=== PATIENT | male | born 1935 | race African-American/Black ===

== ENCOUNTER 2019-03-10 20:19 | Inpatient (IN) | payer MEDICARE, MEDICAID ==
[2019-03-10 20:51] LABS: #Eosinphils 0.1 thou/uL (0.0-0.7); #Lymphocytes 1.2 thou/uL (1.20-3.40); #Monocytes 0.7 thou/uL (0.11-0.59); #Neutrophils 8.6 thou/uL (1.40-6.50); %Basophils 0.1 % (0.0-1.0); %Eosinophils 0.9 % (0.0-10.0); %Monocytes 6.2 % (0.0-10.0); %Neutrophils 81.8 % (42.0-75.0); Mean Corpuscular HGB CONC 32.9 g/dL (32.0-36.0); Mean Corpuscular Hemoglobin 31.2 pg (27.0-31.0); Mean Corpuscular Volume 94.9 fL (78.0-98.0); Mean Platelet Volume 5.9 fL (7.4-10.4); Platelet Count 302 thou/uL (130-400); RBC Distribution Width 12.3 % (11.5-14.5); Red Blood Cell (RBC) Count 3.85 mill/uL (4.70-6.10); White Blood Cell (WBC) Count 10.5 thou/uL (4.8-10.8)
[2019-03-10 21:14] LABS: ALT (SGPT) 11 U/L (8-55); AST (SGOT) 15 U/L (5-34); Albumin 4.1 g/dL (3.4-4.8); Alkaline Phosphatase 82 U/L (40-150); Anion Gap 12 mmol/L (10-20); BUN (Urea Nitrogen) 17 mg/dL (8.4-25.7); Bilirubin, Total 0.4 mg/dL (0.2-1.2); Calc. Creatinine Clearance 0 mL/min (70-130); Calcium 10.1 mg/dL (7.8-10.44); Carbon Dioxide 27 mmol/L (23-31); Chloride 103 mmol/L (98-107); Estimated GFR-MDRD 82; Globulin 2.9 g/dL (2.4-3.5); Glucose 116 mg/dL (83-110); Potassium 4.2 mmol/L (3.5-5.1); Sodium 138 mmol/L (136-145)
--- NOTE | 2019-03-10 21:31 | CT ---
Exam: Head CT without contrast HISTORY: Altered mental status COMPARISON: none FINDINGS: Limited evaluation due to motion No definite hemorrhage or extra-axial coma Age-appropriate atrophy. Confluent white matter hypodensities due to chronic small vessel ischemic ch idalia. Cortical montaño-white matter differentiation is preserved No hydrocephalus Remote insult with volume loss involving the left cerebellar hemisphere Intact calvarium. Adequate aeration of the sinuses and IMPRESSION: 1. Limited evaluation of motion degradation. 2. No acute intracranial process. 3. Atrophy. Chronic small vessel ischemic changes white matter are noted. 4. Remote insult in the left cerebellar hemisphere.
[2019-03-10 22:24] LABS: Bilirubin Negative (Negative); Blood, Urine Negative (Negative); Clarity CLEAR (Clear); Glucose, Urine (Dipstick) Negative (Negative); Leukocyte Negative (Negative); Nitrite Negative (Negative); Protein, Urine (Dipstick) Negative (Neg-Trace); Specific Gravity, Urine 1.018 (1.002-1.036); Urobilinogen 0.2 mg/dL (0.2-1.0); pH, Urine 5.5 (5.0-9.0)
[2019-03-10 22:25] LABS: Bacteria/HPF None Seen HPF (None Seen); Hyaline Casts/LPF 0-3 HYALINE CAST LPF (0-3 Hyaline); RBC/HPF 0-3 HPF (0-3); Squamous Epithelial 0-3 HPF (0-3); WBC/HPF 0-3 HPF (0-3)
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
[2019-03-10] MEDS ORDERED: Ondansetron PF 4 MG/2 ML Vial IVP PRN (23:33)
[2019-03-10] MEDS ORDERED: Ondansetron ODT 4 MG TAB PO PRN (23:33)
[2019-03-10] MEDS ORDERED: Acetaminophen 325 MG TAB PO PRN (23:33)
[2019-03-10] MEDS ORDERED: Acetaminophen 650 MG Suppository PR PRN (23:33)
[2019-03-10] MEDS ORDERED: levETIRAcetam In NaCl (Iso-Os) 1,500 MG in Premix Bag 1 BAG IVPB SCH (23:59)
[2019-03-11] MEDS: Sodium Chloride 0.9% 1,000 ML IV SCH ×3 (01:15→18:29)
[2019-03-11 01:29] VITALS: BMI 21.8
[2019-03-11] MEDS ORDERED: Guaifenesin DM 100-10/5 ML UDCUP PO PRN (05:00)
[2019-03-11] MEDS ORDERED: Non-Formulary Item 1 EACH (Acetaminophen [Tylenol] 650 MG) PO PRN (05:00)
[2019-03-11] MEDS ORDERED: Nitroglycerin 0.4 MG TAB (25 Tab Bottle) SL PRN (05:00)
[2019-03-11] MEDS ORDERED: diphenhydrAMINE 25 MG CAP PO PRN (05:00)
--- NOTE | 2019-03-11 06:52 | PDOC.FM ---
- Subjective Subjective: A&Ox2 today. Deneis chest pain, shortness of breath. No acute events overnight, no more seizures. - Objective Vital Signs & Weight: Vital Signs (12 hours) Temp Pulse Resp BP BP BP Pulse Ox 03/11/19 03:08 98.7 F 87 18 106/55 L 96 03/11/19 02:58 98 F 95 18 156/78 H 100 03/11/19 00:44 98 F 92 18 156/78 H 100 Weight Weight 67.132 kg I&O: 03/09/19 03/10/19 03/11/19 06:59 06:59 06:59 Intake Total 1000 Balance 1000 Result Diagrams: 03/10/19 20:44 03/10/19 20:44 Dx/Plan (1) New onset seizure Code(s): R56.9 - UNSPECIFIED CONVULSIONS Status: Acute (2) HLD (hyperlipidemia) Code(s): E78.5 - HYPERLIPIDEMIA, UNSPECIFIED Status: Acute (3) Hx of traumatic brain injury Code(s): Z87.820 - PERSONAL HISTORY OF TRAUMATIC BRAIN INJURY Status: Acute (4) COPD (chronic obstructive pulmonary disease) Status: Acute (5) BPH (benign prostatic hyperplasia) Code(s): N40.0 - BENIGN PROSTATIC HYPERPLASIA WITHOUT LOWER URINRY TRACT SYMP Status: Chronic (6) Schizophrenia Code(s): F20.9 - SCHIZOPHRENIA, UNSPECIFIED Status: Chronic Qualifiers: Schizophrenia type: unspecified Qualified Code(s): F20.9 - Schizophrenia, unspecified - Plan Plan: New onset seizure, tonic-clinic - Loaded with keppra on admission and latha lcontinue w/ 500mg q12 - Fall precautions, PT/OT - Neurology consulted, appreciate recommendations - MRI pending - added prolactin to original labs COPD -home meds and prn breathing tx BPH - home meds HLD - home meds Dysphagia - home meds GERD - home meds Schizophrenia - home meds CODE: FULL, sister used to be healthcare technician, but not MPOA: [phone] PCP: Bhavesh Dispo: aminata flores MD, PGY-2 Addendum - Attending - Attending Attestation Date/Time: 03/11/19 4943 I personally evaluated the patient and discussed the management with Dr. Thien Morton. I agree with the History, Examination, Assessment and Plan documented above with any addition or exceptions noted below. Neuro consult, Keppra, MRI. Further mgmt per their recs.
[2019-03-11] MEDS ORDERED: Prevnar 13-Val Conj/PF 0.5 ML SYRINGE IM ONE (09:00)
[2019-03-11] MEDS: Finasteride 5 MG TAB PO SCH (09:44)
[2019-03-11] MEDS: Multivit, Therapeutic 1 TAB PO SCH (09:44)
[2019-03-11] MEDS: Aspirin Chewable 81 MG TAB PO SCH (09:44)
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
[2019-03-11] MEDS: Atorvastatin Calcium 10 MG TAB PO SCH (20:28)
[2019-03-11] MEDS: Tamsulosin HCl 0.4 MG CAP PO SCH (20:28)
[2019-03-12] MEDS: Sodium Chloride 0.9% 1,000 ML IV SCH ×4 (03:05→22:06)
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
[2019-03-12] MEDS: Multivit, Therapeutic 1 TAB PO SCH (09:25)
[2019-03-12] MEDS: Finasteride 5 MG TAB PO SCH (09:25)
[2019-03-12] MEDS: Aspirin Chewable 81 MG TAB PO SCH (09:25)
[2019-03-12] MEDS: levETIRAcetam 500 MG TAB PO SCH (09:25)
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
[2019-03-12] MEDS ORDERED: Lorazepam 2 MG/ML VIAL SLOW IVP PRN (12:27)
--- NOTE | 2019-03-12 13:22 | MRI ---
MRI Brain W WO Con: 03/12/2019 12:00 AM CLINICAL HISTORY: History of possible seizures. COMPARISON: CT of the brain without contrast dated March 10, 2019 FINDINGS: 14 cc of MultiHance was utilized for the examination. Extra axial spaces: Moderately prominent for age related to diffuse atrophy. Acute infarction: None. Ventricular system: Slight ex vacuo dilatation due to diffuse atrophy. Basal cisterns: Normal. Cerebral parenchyma: There is moderate to severe chronic small vessel white matter ischemic change.. Midline shift: None. Cerebellum: There are remote lacunar infarcts involving the cerebellar hemispheres bilaterally. Brainstem: Normal. Paranasal sinuses:There is bilateral mastoid effusions. Paranasal sinuses are clear. Intraaxial Enhancement: None IMPRESSION: 1. No acute intracranial abnormality. 2. Moderate to severe chronic small vessel white matter ischemic change with remote bilateral cerebel lar hemisphere infarcts. 3. Bilateral mastoid effusions
[2019-03-12] MEDS: Atorvastatin Calcium 10 MG TAB PO SCH (20:59)
[2019-03-12] MEDS: Tamsulosin HCl 0.4 MG CAP PO SCH (20:59)
[2019-03-13 06:11] LABS: Cardiac Risk 3.6 (Less than 4.5)
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
[2019-03-13] MEDS: Sodium Chloride 0.9% 1,000 ML IV SCH ×3 (09:53→17:25)
[2019-03-13] MEDS: Aspirin Chewable 81 MG TAB PO SCH (09:54)
[2019-03-13] MEDS: levETIRAcetam 500 MG TAB PO SCH (09:54)
[2019-03-13] MEDS: Finasteride 5 MG TAB PO SCH (09:54)
[2019-03-13] MEDS: Multivit, Therapeutic 1 TAB PO SCH (09:54)
[2019-03-13] MEDS: Tamsulosin HCl 0.4 MG CAP PO SCH (21:25)
[2019-03-13] MEDS: Atorvastatin Calcium 10 MG TAB PO SCH (21:25)
[2019-03-14] MEDS: Sodium Chloride 0.9% 1,000 ML IV SCH ×2 (02:23→11:35)
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
[2019-03-14] MEDS: levETIRAcetam 500 MG TAB PO SCH (08:36)
[2019-03-14] MEDS: Multivit, Therapeutic 1 TAB PO SCH (08:36)
[2019-03-14] MEDS: Aspirin Chewable 81 MG TAB PO SCH (08:36)
[2019-03-14] MEDS: Finasteride 5 MG TAB PO SCH (08:36)
--- NOTE | 2019-03-14 15:13 | EEG ---
Referring Physician: SONIA STEEN EEG # [id number] TEST TYPE: ROUTINE PORTABLE INPATIENT REPORT: AN EEG USING THE INTERNATIONAL TEN-TWENTY SYSTEM OF ELECTRODE PLACEMENT WAS PERFORMED. The best waking background is an 8 hertz Alpha frequency. There is some diffuse slowing seen intermixed. No epileptiform features were seen. Photic stimulation was unremarkable. IMPRESSION: THIS IS AN UNREMARKABLE AWAKE EEG. Vrt Mechanic: VERO Fire Technician: EEG.AMINA MARTIN
[2019-03-14 16:10] VITALS: BP 135/77; TEMP 98.3
--- NOTE | 2019-03-15 11:50 | DIS ---
DATE OF ADMISSION: 03/12/2019 DATE OF DISCHARGE: 03/14/2019 ADMITTING ATTENDING: Lalito Harrington MD. DISCHARGING ATTENDING: Steve Hernandez MD. RESIDENT: Sina Stewart DO. CONSULTS: Dr. Marjorie Gray, neurology. PROCEDURES: 1. EEG showing unremarkable awake EEG. 2. Brain MRI showing no acute intracranial abnormalities, moderate to severe chronic small-vessel white matter ischemia change with remote bilateral cerebellar hemisphere infarcts, bilateral mastoid effusions. 3. CT scan of brain showing limited evaluation of motion degradation, no acute intracranial process, atrophy, chronic small-vessel ischemic changes, white matter noted, remote insult in the left cerebral hemisphere. PRIMARY DIAGNOSIS: Tonic-clonic seizure. SECONDARY DIAGNOSES: 1. Chronic obstructive pulmonary disease. 2. BPH. 3. Hyperlipidemia. 4. Dysphagia. 5. Gastroesophageal reflux disease. 6. Schizophrenia. DISCONTINUED MEDICATIONS: None. DISCHARGE MEDICATIONS: 1. Tylenol 650 mg p.o. q.6 hours p.r.n. 2. Aspirin 81 mg p.o. daily. 3. Atorvastatin 10 mg p.o. at bedtime. 4. Benadryl 25 mg p.o. q.6 hours p.r.n. itching. 5. Finasteride 5 mg p.o. daily. 6. mg p.o. q.4 hours p.r.n. cough. 7. Keppra 500 mg p.o. daily. 8. Multivitamin one capsule p.o. daily. 9. Nitroglycerin 0.4 mg sublingual q.5 minutes p.r.n. chest pain. 10. Pantoprazole 40 mg p.o. daily. 11. Tamsulosin 0.4 mg p.o. at bedtime. DISCONTINUED MEDICATIONS: None. BRIEF HISTORY OF PRESENT ILLNESS/HOSPITAL COURSE: This is an 83-year-old male presenting from [facility] with possible seizure. The patient was bathing and had seizure, lasts about 2 minutes. Nursing reports no bowel loss, staring at ceiling, pupils are fixed and arms twitching. The patient has no previous history of seizures. At the time of admission, neuro exam was difficult to do due to diminished strength, difficulty following commands, although sensation was intact. The patient at baseline uses a wheelchair for mobility. The patient was admitted to the hospital, underwent EEG showing no seizure activity. The patient was put on prophylactic Keppra for seizure prophylaxis going forward. The patient was seen by Neurology with plans to follow up with Neurology and PCP in the outpatient setting. During the patient's hospital stay, there were no witnessed seizures. This including the EEG and the negative brain imaging in which he had no concern for. The seizure was caused by cranial lesion or any mass effect. DISPOSITION: Stable. DISCHARGE INSTRUCTIONS: 1. Location: [facility]. 2. Diet: Heart healthy. 3. Activity: As tolerated. 4. Followup: Follow up with PCP, Dr. Ospina, and Neurology as instructed in 1 to 2 weeks. Job ID: [id number]
== END 2019-03-14 19:30 | DRG 101 ==
LOC: ERS 20:19 → 2NO 23:08 → 2SE 03-11 00:32 → OBSVTOIN 03-12 20:18 → 2SE 03-12 22:29
PROVIDERS: ADMIT Student in an Organized Health Care Education/Training Program; ATTEND Student in an Organized Health Care Education/Training Program
DX: R56.9 Unspecified convulsions (principal); J44.9 Chronic obstructive pulmonary disease, unspecified; N40.0 Benign prostatic hyperplasia without lower urinary tract symptoms; F20.9 Schizophrenia, unspecified; E78.5 Hyperlipidemia, unspecified; G31.84 Mild cognitive impairment of uncertain or unknown etiology; Z88.8 Allergy status to other drugs, medicaments and biological substances; Z87.820 Personal history of traumatic brain injury
CPT/HCPCS: 36415; 51701; 70450; 70553; 80053; 80061; 81003; 84146; 85025; 90471; 90670; 93005; 94760; 95816; 95819; 96360; 96361; C1713; G0009; J1953; J2060

== ENCOUNTER 2019-08-23 20:01 | Inpatient (IN) | payer MEDICARE, MEDICAID ==
[~2019-08-23 20:01] MED LIST: ISOVUE-370 76%-LOCM 1 ML ONE
[2019-08-23 20:48] LABS: #Eosinphils 0.1 thou/uL (0.0-0.7); #Lymphocytes 1.1 thou/uL (1.20-3.40); #Monocytes 0.6 thou/uL (0.11-0.59); #Neutrophils 7.3 thou/uL (1.40-6.50); %Basophils 0.2 % (0.0-1.0); %Eosinophils 1.3 % (0.0-10.0); %Lymphocytes 12.3 % (21.0-51.0); %Monocytes 6.1 % (0.0-10.0); %Neutrophils 80.1 % (42.0-75.0); Mean Platelet Volume 5.9 fL (7.4-10.4); Platelet Count 328 thou/uL (130-400); RBC Distribution Width 12.4 % (11.5-14.5); White Blood Cell (WBC) Count 9.2 thou/uL (4.8-10.8)
--- NOTE | 2019-08-23 21:06 | RAD ---
PORTABLE CHEST: 08/23/19 HISTORY: Shortness of breath. Question aspiration. COMPARISON: 10/23/16 exam. There is cardiomegaly. The lungs appear clear. No infiltrate identified. No evidence of aspiration pn eumonia. Vascular markings are normal. No effusion. IMPRESSION: No evidence of infiltrate. POS: AGW
[2019-08-23 21:09] LABS: ALT (SGPT) 8 U/L (8-55); AST (SGOT) 14 U/L (5-34); Albumin 4.2 g/dL (3.4-4.8); Alkaline Phosphatase 102 U/L (40-110); Anion Gap 12 mmol/L (10-20); BUN (Urea Nitrogen) 14 mg/dL (8.4-25.7); Bilirubin, Total 0.2 mg/dL (0.2-1.2); Calc. Creatinine Clearance 0 mL/min (70-130); Calcium 9.9 mg/dL (7.8-10.44); Carbon Dioxide 25 mmol/L (23-31); Chloride 106 mmol/L (98-107); Estimated GFR-MDRD 85; Globulin 3.1 g/dL (2.4-3.5); Glucose 112 mg/dL (83-110); Potassium 4.3 mmol/L (3.5-5.1); Protein, Total 7.3 g/dL (5.8-8.1); Sodium 139 mmol/L (136-145)
[2019-08-23] MEDS ORDERED: Hydrocortisone Sod Succ/PF 100 mg/2 ml Vial ONE (22:05)
--- NOTE | 2019-08-23 23:27 | CT ---
CT ANGIOGRAM THORAX WITH IV CONTRAST AND 3D RECONSTRUCTIONS: 08/23/19 HISTORY: Hypoxia. COMPARISON: 10/23/16. FINDINGS: No filling defects are seen in the pulmonary arteries to suggest a pulmonary embolus. Vascular calcifications are seen in the thoracic aorta, but the thoracic aorta is normal in caliber w ithout evidence of an aortic dissection. The heart is at the upper limits of normal in size. Vascular calcifications are seen in the coronary arteries. Again noted are small pleural based nodular densities adjacent to the minor fissure. There is a pleur al based nodular density present at the posteromedial aspect of the right lower lobe measuring approx imately 4 mm. This was not definitely seen on the prior exam but is too small to characterize. No con solidation or pleural fluid is identified. Scattered areas of scarring are present. The previously se en pericardial effusion is no longer visualized. There are several scattered hypodense lesions again seen in the liver which have not significantly ch anged compared to the prior study and statistically likely represents cysts given stability. There has been no significant interval change when compared to the prior exam. IMPRESSION: 1. No CT evidence of a pulmonary embolus. 2. CT thorax is otherwise unchanged when compared to the prior exam. 3. Gaseous distention of the stomach with associated particulate matter which may be related to recent ingestion of a meal. There is also mild gaseous distention of the limited visualized colon. POS: OFF
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
[2019-08-24] MEDS ORDERED: Acetaminophen 325 MG TAB PO PRN (03:17)
[2019-08-24] MEDS ORDERED: Azithromycin 500 MG in Sodium Chloride 0.9% 250 ML 250 ML IVPB SCH (06:00)
[2019-08-24 07:30] VITALS: BP 131/80; TEMP 98.6
[2019-08-24] MEDS ORDERED: predniSONE 20 MG TAB PO SCH (08:00)
[2019-08-24] MEDS ORDERED: Enoxaparin Sodium 40 MG/0.4 ML SYRINGE SC SCH (09:00)
[2019-08-24] MEDS ORDERED: Azithromycin 250 MG TAB PO SCH (13:00)
[2019-08-24 14:36] VITALS: BMI 24.8
--- NOTE | 2019-08-25 04:02 | DIS ---
DATE OF ADMISSION: 08/24/2019 DATE OF DISCHARGE: 08/24/2019 ADMITTING ATTENDING: Steve Hernandez MD. DISCHARGE ATTENDING: Steve Hernandez MD. RESIDENT: Wesley Betancur DO CONSULTS: None. PROCEDURES: Chest x-ray on 08/23/2019, finding cardiomegaly. Clear lungs. No infiltrate. No evidence of aspiration pneumonia. No effusion. CTA of chest and thorax on 08/23/2019, with finding of no PE. Chronic changes present. ADMITTING DIAGNOSES: 1. Aspiration pneumonia. 2. Chronic obstructive pulmonary disease exacerbation. DISCHARGE DIAGNOSES: 1. Chronic obstructive pulmonary disease exacerbation secondary to BPH. 2. Hx of TBI 3. Dysphagia. 4. Hyperlipidemia. 5. Gastroesophageal reflux disease. 6. Nausea. 7. Hx of seizure DISCHARGE MEDICATIONS: 1. Flomax 0.5 mg PO HS 2. ASA 81 PO qD 3. Proscar 5 mg PO qD 4. Guaifenesin 15mL PO q4 PRN cough 5. Lipitor 10 mg PO HS 6. Benadryl 25 mg PO q6 PRN 7. Tylenol 650 mg PO q6 PRN pain 8. Protonix 40 mg PO daily 9. Keppra 500 mg PO daily 10. Azithromycin 250 mg PO daily x4 days 11. Prednisone 40 mg PO daily x5 days 12. Duoneb 3mL NEB q4 PRN SOB/Wheeze HOSPITAL COURSE: This is an 83-year-old male, who was sent from the emergency room from senior care with concern of shortness of breath and possible aspiration. At the time of admission, the patient had generally normal vital signs and was requiring no supplemental oxygenation. Chest x-ray was not consistent with pneumonia. There was a mild increased work of breathing with some wheezing. The patient was treated for concern of aspiration pneumonia and COPD exacerbation. He was given doxycycline and DuoNebs in the emergency room upon admission, doxycycline was discontinued. The patient was started on azithromycin, was also given Solu-Cortef and DuoNebs. Upon examination next morning, the patient appeared to be at his respiratory baseline. He complained of no shortness of breath. There was minimal wheezing. There is no increased work of breathing. Discussed with the patient, he requested to go back to the senior care and be treated outpatient given the very mild nature of this exacerbation and likely pneumonia diagnosis. This would be appropriate to be treated outpatient. The patient was sent home on days of prednisone and azithromycin. Nebs were also sent in for p.r.n. use. DISCHARGE INSTRUCTIONS: 1. Location: [facility]. 2. Diet: Mechanical soft, nectar thick. 3. Follow up with PCP in 2 weeks. Job ID: [id number] MTDD
[2019-08-25] MEDS ORDERED: Azithromycin 250 MG TAB PO SCH (09:00)
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
== END 2019-08-24 17:45 | DRG 189 ==
LOC: ERS 20:01 → T4-B 08-24 00:44
PROVIDERS: ADMIT Family Medicine; ATTEND Family Medicine
DX: J96.01 Acute respiratory failure with hypoxia (principal); J44.1 Chronic obstructive pulmonary disease with (acute) exacerbation; F03.90 Unspecified dementia, unspecified severity, without behavioral disturbance, psychotic disturbance, mood disturbance, and anxiety; N40.0 Benign prostatic hyperplasia without lower urinary tract symptoms; F20.9 Schizophrenia, unspecified; E78.5 Hyperlipidemia, unspecified; K21.9 Gastro-esophageal reflux disease without esophagitis; R13.10 Dysphagia, unspecified; R11.0 Nausea; G40.909 Epilepsy, unspecified, not intractable, without status epilepticus; Z87.820 Personal history of traumatic brain injury; Z79.52 Long term (current) use of systemic steroids; Z79.51 Long term (current) use of inhaled steroids; Z79.82 Long term (current) use of aspirin; Z79.899 Other long term (current) drug therapy
CPT/HCPCS: 36415; 71045; 71275; 80053; 83605; 83880; 84145; 84484; 85025; 93005; 96365; 96375; J0456; J1650; J1720; J3490; J7050; J7512; J7620; Q9966

== ENCOUNTER 2019-08-30 14:42 | Day surgery (SDC) | payer MEDICARE, MEDICAID ==
--- NOTE | 2019-08-30 15:14 | RAD ---
Portable chest: HISTORY: Choking/aspiration COMPARISON: 08/23/2019 FINDINGS: Lung ibarra are clear. Heart mildly prominent but stable in appearance. Vascularity is norm al. Visualized osseous structures unremarkable. IMPRESSION: No acute finding
[2019-08-30] MEDS ORDERED: Lidocaine 4% Topical Sol 50 ML BOT ONE (15:22)
[2019-08-30] MEDS ORDERED: Oxymetazoline HCl 0.05% ( 15 ML ) NASAL SCH (15:45)
[2019-08-30 16:01] LABS: #Lymphocytes 0.8 thou/uL (1.20-3.40); #Monocytes 0.3 thou/uL (0.11-0.59); #Neutrophils 9.8 thou/uL (1.40-6.50); %Basophils 0.2 % (0.0-1.0); %Eosinophils 0.2 % (0.0-10.0); %Lymphocytes 7.6 % (21.0-51.0); %Monocytes 2.7 % (0.0-10.0); %Neutrophils 89.3 % (42.0-75.0); Mean Corpuscular HGB CONC 33.8 g/dL (32.0-36.0); Mean Corpuscular Hemoglobin 31.5 pg (27.0-31.0); Mean Corpuscular Volume 93.3 fL (78.0-98.0); Platelet Count 367 thou/uL (130-400); RBC Distribution Width 12.4 % (11.5-14.5); Red Blood Cell (RBC) Count 4.11 mill/uL (4.70-6.10)
[2019-08-30] MEDS ORDERED: Succinylcholine Chloride 20 MG/ML 10 ml SYRINGE FS ONE (16:02)
[2019-08-30] MEDS ORDERED: Sterile Water 10 ML ONE (16:03)
[2019-08-30 16:09] LABS: PTT 24.9 SEC (22.9-36.1); Prothrombin Time 13.4 SEC (12.0-14.7)
[2019-08-30 16:25] LABS: ALT (SGPT) 11 U/L (8-55); AST (SGOT) 13 U/L (5-34); Albumin 4.4 g/dL (3.4-4.8); Alkaline Phosphatase 93 U/L (40-110); Anion Gap 14 mmol/L (10-20); BUN (Urea Nitrogen) 23 mg/dL (8.4-25.7); Bilirubin, Total 0.3 mg/dL (0.2-1.2); Calc. Creatinine Clearance 0 mL/min (70-130); Calcium 10.1 mg/dL (7.8-10.44); Carbon Dioxide 25 mmol/L (23-31); Chloride 104 mmol/L (98-107); Estimated GFR-MDRD 72; Globulin 3.2 g/dL (2.4-3.5); Glucose 183 mg/dL (83-110); Potassium 4.5 mmol/L (3.5-5.1); Protein, Total 7.6 g/dL (5.8-8.1); Sodium 138 mmol/L (136-145)
--- NOTE | 2019-08-30 16:35 | CT ---
Exam: Chest CT without contrast HISTORY: Dysphagia. Choking on steak at group home. Patient was gurgling. COMPARISON: 08/23/2019 FINDINGS: Mediastinum: Limited evaluation by the lack of intravenous contrast administration. No mass, lymphade nopathy or hematoma HEART: Enlarged. No significant pericardial fluid Aorta: Normal caliber. Scattered atherosclerotic disease IVC: Filter is noted Upper abdomen: Multiple hypodensities in the liver are redemonstrated and are felt to represent hepat ic cysts. Trachea and central bronchi: Patent Pleural spaces: No pleural effusion Pneumothorax: None Right lung: No masses or consolidation. Stable linear opacities. Stable subpleural nodule along the m inor fissure. No suspicious masses or consolidation Left lung: Postsurgical changes compatible left upper lobectomy are redemonstrated. Linear opacities in the left lower lobe are unchanged. No suspicious masses or consolidation. Visualized esophagus is grossly unremarkable. Osseous structures: No lytic or blastic lesions. IMPRESSION: No CT evidence of foreign body in the airway or esophagus. Direct visualization is recommended Transcribed Date/Time: 08/30/2019 4:47 PM
[2019-08-30] MEDS ORDERED: Albuterol Sulfate 2.5 mg/3 ml Neb NEB PRN (21:15)
--- NOTE | 2019-08-30 23:24 | OP ---
DATE OF PROCEDURE: 08/30/2019 INFORMATION MANAGEMENT SPECIALIST SURGEON: None. PROCEDURE PERFORMED: Esophagogastroduodenoscopy, diagnostic. INDICATIONS: 1. Chronic dysphagia. 2. Suspicion for possible retained esophageal food bolus impaction. The patient has evidently never undergone EGD in the past. MEDICATIONS: See Anesthesia record. FINDINGS: After discussion of the risks, benefits, and alternatives of the procedure, informed consent was obtained and verified. Pre-endoscopic cardiopulmonary examination was satisfactory. Time-out was performed before sedation was achieved. Sedation was achieved with Anesthesia assistance. With the patient under general anesthesia, endotracheally intubated in the endoscopy suite. The patient was placed in left lateral decubitus position. A Pentax adult upper endoscope was placed into the oropharynx and passed through the cricopharyngeus under direct visualization. The esophageal mucosa appeared normal throughout with a normal-appearing Z-line. There was no evidence of any esophageal foreign body. No evidence of esophageal stricture. The endoscope was advanced into the stomach. Forward and retroflexed views of the entire gastric mucosa were obtained. There is a small hiatal hernia. There are retained food contents within the gastric fundus. The visualized gastric mucosa appears normal throughout. The endoscope was advanced through the pylorus and into the first and second portions of the duodenum, which also appeared normal. The upper endoscope was then completely withdrawn and the patient allowed to recover. The patient tolerated the procedure well. There were no immediate postprocedure complications. IMPRESSION: 1. Normal esophagus. No evidence of food impaction or esophageal stricture. 2. Small hiatal hernia. 3. Food contents in the gastric fundus. 4. Otherwise normal EGD. RECOMMENDATION: Discharge back to the care home with mechanical soft diet. Would recommend Speech Pathology evaluation at the care home for oropharyngeal dysphagia. Job ID: [id number]
--- NOTE | 2019-08-31 00:09 | HP ---
DATE OF CONSULTATION: 08/30/2019 REQUESTING PHYSICIAN: Dr. Lucas. REASON FOR CONSULTATION: Suspected esophageal foreign body. HISTORY OF PRESENT ILLNESS: Blake Flaherty is an 83-year-old man with comorbidities including schizophrenia, COPD and chronic dysphagia. I cannot see that he has ever undergone upper endoscopy examination. He lives at [facility]. He was fairly recently discharged from the hospital here after brief admission with COPD exacerbation. Evidently, he was eating some steak earlier today and was noticed to choke on it. He started gurgling, received the Heimlich maneuver. Nothing came up and from then on, he was evidently unable to take in any liquids. He presented to the emergency department. Chest x-ray showed no acute processes and a CT chest showed no acute infiltrate. There was no evidence of esophageal foreign body on CT, though obviously CT is not the best for showing soft tissue food bolus impaction. He received glucagon, but continued to have gurgling. He has satisfactory oxygen saturations and he is not complaining of any other symptoms. We are consulted for suspicion of esophageal food bolus impaction. REVIEW OF SYSTEMS: Full review of systems including constitutional, head, eyes, ears, nose, throat, GI, , cardiovascular, respiratory, musculoskeletal, neurologic systems is negative except as noted in the HPI. PAST MEDICAL HISTORY: BPH, schizophrenia, COPD, chronic dysphagia, hyperlipidemia, urinary tract infection, GERD, malnutrition. FAMILY HISTORY: Unable to obtain from the patient. SOCIAL HISTORY: Evidently no tobacco, alcohol, or drug use. He lives at [facility]. ALLERGIES: NO KNOWN DRUG ALLERGIES. OUTPATIENT MEDICATIONS: Atorvastatin is all that is on his ER intake list. However, per recent discharge summary outpatient medications would include; 1. Flomax. 2. Aspirin 81 mg daily. 3. Proscar. 4. Guaifenesin. 5. Lipitor. 6. Benadryl p.r.n. 7. Tylenol p.r.n. 8. Protonix 40 mg daily. 9. Keppra 500 mg p.o. daily. 10. Azithromycin 250 mg p.o. daily x4 days. 11. DuoNebs p.r.n. OBJECTIVE: VITAL SIGNS: Temperature 98.3, blood pressure 153/101, pulse 98, respirations 24 per minute, 100% oxygen saturation on 2 L nasal cannula. GENERAL: Demented 83-year-old man appearing chronically ill, but nontoxic, in no acute distress. SKIN: No jaundice, no rashes were palpable. EYES: No scleral icterus. Extraocular movements intact. ENT: Mucous membranes moist. No oral lesions. LYMPH: No submandibular or supraclavicular lymphadenopathy. THYROID: Nontender to palpation. HEART: Regular rate and rhythm. LUNGS: Unlabored respiration. No wheezing. He is slightly tachypneic. Chest expansion is symmetrical. ABDOMEN: Soft, nontender, nondistended. Bowel sounds present. EXTREMITIES: No peripheral edema. VESSELS: Radial pulses 2+ bilaterally. NEUROLOGIC: Cranial nerves 2-12 intact bilaterally. No focal deficits. LABORATORY STUDIES: WBC 11.0, hemoglobin 13.0, platelets 367. INR 1.0. Sodium 138, potassium 4.5, BUN 23, creatinine 1.18. LFTs all normal with total bilirubin 0.3, alkaline phosphatase 93, AST 13, ALT 11, albumin 4.4. IMAGING STUDIES: Chest x-ray showed no acute processes. CT of the chest demonstrated no pulmonary infiltrates. No CT evidence of esophageal foreign body in the airway or esophagus with direct visualization recommended. There are postsurgical changes compatible with left upper lobectomy, multiple hepatic cysts, scattered atherosclerotic disease. ASSESSMENT/PLAN: 1. Dysphagia, chronic. 2. Possible esophageal foreign body. It sounds as if the patient might have had a transient food bolus impaction earlier today, though I am doubtful as to whether this persists given his symptoms currently. However, he has certainly had ongoing dysphagia episodes for some time now and upper endoscopic investigation is warranted. We will plan to perform EGD urgently this evening. Anticipate the patient will be able to be discharged back to his group home following the procedure. Job ID: [id number]
== END 2019-08-30 23:07 ==
LOC: ERS 14:42 → SDC/OP 19:36
PROVIDERS: ATTEND Internal Medicine
PROC: 0DJ08ZZ Inspection of Upper Intestinal Tract, Via Natural or Artificial Opening Endoscopic (ICD-10-PCS; principal; 2019-08-30)
DX: R13.10 Dysphagia, unspecified (principal); K44.9 Diaphragmatic hernia without obstruction or gangrene; F20.9 Schizophrenia, unspecified; J44.9 Chronic obstructive pulmonary disease, unspecified; E78.5 Hyperlipidemia, unspecified; N40.0 Benign prostatic hyperplasia without lower urinary tract symptoms; K21.9 Gastro-esophageal reflux disease without esophagitis; Z79.82 Long term (current) use of aspirin; Z79.899 Other long term (current) drug therapy
CPT/HCPCS: 43235; 71045; 71250; 80053; 85025; 85610; 85730; 93005; J1610; 96372

== ENCOUNTER 2019-10-09 19:00 | Observation (INO) | payer MEDICARE, MEDICAID ==
[2019-10-09 19:45] LABS: #Eosinphils 0.2 thou/uL (0.0-0.7); #Lymphocytes 1.6 thou/uL (1.20-3.40); #Monocytes 0.5 thou/uL (0.11-0.59); #Neutrophils 4.4 thou/uL (1.40-6.50); %Basophils 0.5 % (0.0-1.0); %Lymphocytes 24.4 % (21.0-51.0); %Monocytes 7.1 % (0.0-10.0); %Neutrophils 65.1 % (42.0-75.0); Hemoglobin 10.9 g/dL (14.0-18.0); Mean Corpuscular HGB CONC 33.7 g/dL (32.0-36.0); Mean Corpuscular Hemoglobin 31.7 pg (27.0-31.0); Mean Corpuscular Volume 94.1 fL (78.0-98.0); Mean Platelet Volume 6.2 fL (7.4-10.4); Platelet Count 264 thou/uL (130-400); RBC Distribution Width 12.5 % (11.5-14.5); Red Blood Cell (RBC) Count 3.43 mill/uL (4.70-6.10); White Blood Cell (WBC) Count 6.8 thou/uL (4.8-10.8)
--- NOTE | 2019-10-09 19:47 | RAD ---
Portable frontal chest radiograph: 10/09/2019 COMPARISON: 08/30/2019 HISTORY: Possible aspiration, dyspnea FINDINGS: Heart and mediastinal contours are stable. Prominent bilateral shoulder degenerative change present, stable when compared to the prior exam. No pneumothorax or pleural fluid. No focal consolidation or alveolar edema. IMPRESSION: No focal consolidation or alveolar edema.
[2019-10-09 20:06] LABS: ALT (SGPT) 7 U/L (8-55); AST (SGOT) 13 U/L (5-34); Albumin 3.7 g/dL (3.4-4.8); Alkaline Phosphatase 80 U/L (40-110); Anion Gap 10 mmol/L (10-20); BUN (Urea Nitrogen) 13 mg/dL (8.4-25.7); Bilirubin, Total Less than 0.2 mg/dL (0.2-1.2); Calc. Creatinine Clearance 0 mL/min (70-130); Calcium 9.2 mg/dL (7.8-10.44); Carbon Dioxide 27 mmol/L (23-31); Chloride 106 mmol/L (98-107); Estimated GFR-MDRD 89; Globulin 2.6 g/dL (2.4-3.5); Glucose 123 mg/dL (83-110); Protein, Total 6.3 g/dL (5.8-8.1); Sodium 139 mmol/L (136-145)
[2019-10-09] MEDS ORDERED: Aspirin Chewable 81 MG TAB ONE (23:12)
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
[2019-10-10] MEDS ORDERED: Acetaminophen 650 MG Suppository PR PRN (00:01)
[2019-10-10] MEDS ORDERED: Senokot S 8.6-50 MG TAB PO PRN (00:01)
[2019-10-10] MEDS ORDERED: Furosemide 20 MG/2 ML VIAL SLOW IVP SCH (00:30)
[2019-10-10 02:08] LABS: #Basophils 0.1 thou/uL (0.0-0.2); #Eosinphils 0.2 thou/uL (0.0-0.7); #Lymphocytes 1.9 thou/uL (1.20-3.40); #Monocytes 0.6 thou/uL (0.11-0.59); #Neutrophils 3.7 thou/uL (1.40-6.50); %Basophils 1.1 % (0.0-1.0); %Eosinophils 3.5 % (0.0-10.0); %Monocytes 9.4 % (0.0-10.0); Hemoglobin 10.9 g/dL (14.0-18.0); Mean Corpuscular HGB CONC 33.7 g/dL (32.0-36.0); Mean Corpuscular Hemoglobin 31.7 pg (27.0-31.0); Mean Platelet Volume 5.9 fL (7.4-10.4); Platelet Count 240 thou/uL (130-400); RBC Distribution Width 12.5 % (11.5-14.5); Red Blood Cell (RBC) Count 3.43 mill/uL (4.70-6.10); White Blood Cell (WBC) Count 6.5 thou/uL (4.8-10.8)
[2019-10-10] MEDS ORDERED: Furosemide 20 MG/2 ML VIAL ONE (02:15)
[2019-10-10] MEDS ORDERED: Furosemide 40 MG/4 ML VIAL ONE (02:15)
[2019-10-10 02:31] LABS: Troponin I Less than 0.010 ng/mL (< 0.028)
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
--- NOTE | 2019-10-10 12:32 | RAD ---
EXAM: Single view of the chest HISTORY: Hypotension COMPARISON: 10/09/2019 FINDINGS: This exam is limited secondary to rotation. Single view of the chest shows a normal sized c ardiomediastinal silhouette. There is no evidence of consolidation, mass, or pleural effusion. Degenerative changes are seen in the spine. IMPRESSION: No evidence of acute cardiopulmonary disease
--- NOTE | 2019-10-10 17:23 | PRG ---
DATE OF SERVICE: 10/10/2019 I performed H and P on Mr. Flaherty and agree with the H and P as performed by Dr. Funmi Potter. Job ID: [id number]
--- NOTE | 2019-10-16 16:35 | DIS ---
DATE OF ADMISSION: 10/09/2019 DATE OF DISCHARGE: 10/10/2019 ADMITTING ATTENDING: Yuliana Luna MD DISCHARGE ATTENDING: Donald Luke MD RESIDENT: Funmi Potter MD CONSULT: Speech. PROCEDURES: None. PRIMARY DIAGNOSIS: Chest pain rule out. SECONDARY DIAGNOSES: Dysphagia, chronic obstructive pulmonary disease, benign prostatic hyperplasia, hyperlipidemia, gastroesophageal reflux disease, schizophrenia, anemia, and seizure disorder. DISCHARGE MEDICATIONS: Atorvastatin, budesonide, diphenhydramine, Keppra, omeprazole, Zofran, pramoxine/calamine, tamsulosin, aspirin, finasteride, guaifenesin, DuoNeb, and nitroglycerin. DISCONTINUED MEDICATIONS: None. HISTORY OF PRESENT ILLNESS/HOSPITAL COURSE: Mr. Flaherty is an 83-year-old male, who presented to the ER after he choked on liquid. There is difficulty obtaining the history from the patient. Upon presentation, it appears he had complained of chest pain at some point, and was worked up for chest pain. His initial troponin was indeterminate at 0.024. His chest x-ray was negative. His EKG showed inversion of T-waves on the AVL lead. Therefore, he was admitted for a chest pain rule out. On the second day of admission, upon further questioning he said he came to the hospital due to pain with swallowing. A swallow study was done, which resulted in recommendation for a pureed diet with nectar thickened liquids. The patient [facility]. DISPOSITION: Stable. DISCHARGE INSTRUCTIONS: 1. Location: [facility]. 2. Diet: As mentioned above, pureed and thickened liquids. 3. Activity: Ad dilia. 4. Followup: Follow up with primary care physician. Job ID: [id number] [facility]
== END 2019-10-10 17:00 ==
LOC: ERS 19:00 → ERHOLD 23:03
PROVIDERS: ADMIT Emergency Medicine; ATTEND Emergency Medicine
DX: R07.9 Chest pain, unspecified (principal); R13.10 Dysphagia, unspecified; J44.9 Chronic obstructive pulmonary disease, unspecified; K21.9 Gastro-esophageal reflux disease without esophagitis; E78.5 Hyperlipidemia, unspecified; N40.0 Benign prostatic hyperplasia without lower urinary tract symptoms; F20.9 Schizophrenia, unspecified; D64.9 Anemia, unspecified; G40.909 Epilepsy, unspecified, not intractable, without status epilepticus; Z79.82 Long term (current) use of aspirin; Z79.899 Other long term (current) drug therapy
CPT/HCPCS: 36415; 51701; 71045; 80053; 83880; 84484; 85025; 93005; 94640; J1940; J7620

== ENCOUNTER 2019-11-03 15:51 | Inpatient (IN) | payer MEDICARE, MEDICAID ==
[2019-11-03] MEDS ORDERED: Succinylcholine Chloride 20 MG/ML 10 ml SYRINGE FS ONE (16:23)
[2019-11-03 16:29] LABS: Hemoglobin 9.2 g/dL (14.0-18.0); Mean Corpuscular HGB CONC 32.4 g/dL (32.0-36.0); Mean Corpuscular Hemoglobin 30.5 pg (27.0-31.0); Mean Platelet Volume 6.4 fL (7.4-10.4); Platelet Count 603 thou/uL (130-400); RBC Distribution Width 12.9 % (11.5-14.5); Red Blood Cell (RBC) Count 3.03 mill/uL (4.70-6.10); White Blood Cell (WBC) Count 15.1 thou/uL (4.8-10.8)
[2019-11-03] MEDS ORDERED: Midazolam HCl 5 mg/ml Vial ONE ×2 (16:32→17:10)
[2019-11-03 16:47] LABS: Band 35 % (5-11); Lymphocytes 11 % (21-51); MDiff Complete? YES; Metamyelocyte 1 % (0-0); Monocytes 4 % (0-10); Myelocyte 2 % (0-0); Neutrophil 45 % (42-75); Reactive Lymphocytes 2 % (0-10)
[2019-11-03 16:48] LABS: Actual Bicarbonate (HCO3a) 25.4 mEq/L (22-28); Analyzer IN Cardio ER; CO2 Tension 56.9 mmHg (35.0-45.0); Calcium, Ionized 1.26 mmol/L (1.12-1.30); Carboxyhemoglobin (COHb) 0.3 gm% (0.0-3.0); Hemoglobin (Hb) 10.2 g/dL (14.0-18.0); O2 Tension (PaO2) 94.6 mmHg (> 60.0); Potassium - ABG Lab 6.14 mmol/L (3.70-5.30); pH, Arterial 7.27 (7.35-7.45)
[2019-11-03 16:49] LABS: ALV-art Gradient 190.775 (0-20); Puncture Site LBA
--- NOTE | 2019-11-03 16:49 | RAD ---
XR Chest 1 View Portable HISTORY: Respiratory failure COMPARISON: 10/10/2019 FINDINGS: There has been placement of a endotracheal tube tip just above the level of the luisa. Rec ommend retracting the endotracheal tube. A nasogastric tube can be traced into the stomach. The heart size normal. No lobar consolidation, pne umothoraces or large effusions are seen.
--- NOTE | 2019-11-03 16:50 | RAD ---
Abdomen one view HISTORY: Nasogastric tube placement FINDINGS: Large amount of stool overlies the rectum. Small bowel gas pattern is nonspecific. Nasogastric tube descends to the stomach with the proximal sidehole well beyond the GE junction. Radiopaque percutaneous feeding catheter also overlies left upper quadrant. IMPRESSION: Nasogastric tube in good radiographic position. Peg feeding tube. Constipation?
[2019-11-03 16:51] LABS: ALT (SGPT) 28 U/L (8-55); AST (SGOT) 29 U/L (5-34); Albumin 3.2 g/dL (3.4-4.8); Alkaline Phosphatase 75 U/L (40-110); Anion Gap 13 mmol/L (10-20); BUN (Urea Nitrogen) 18 mg/dL (8.4-25.7); Bilirubin, Total 0.2 mg/dL (0.2-1.2); Calc. Creatinine Clearance 0 mL/min (70-130); Carbon Dioxide 25 mmol/L (23-31); Chloride 100 mmol/L (98-107); Estimated GFR-MDRD Greater than 90; Globulin 3.5 g/dL (2.4-3.5); Glucose 158 mg/dL (83-110); Potassium 5.1 mmol/L (3.5-5.1); Protein, Total 6.7 g/dL (5.8-8.1); Sodium 133 mmol/L (136-145)
[2019-11-03] MEDS ORDERED: Propofol 1,000 MG/100 ML VIAL IV ONE (17:10)
[2019-11-03] MEDS ORDERED: Pantoprazole 40 MG VIAL ONE (17:14)
[2019-11-03] MEDS ORDERED: fentaNYL Citrate/PF 2,000 MCG in Sodium Chloride 0.9% 60 ML IV SCH (17:15)
[2019-11-03] MEDS ORDERED: MEROPENEM 1 GM/50 ML 1 GM in Premix Bag 1 BAG IVPB SCH (17:45)
--- NOTE | 2019-11-03 18:18 | RAD ---
XR Chest 1 View Portable HISTORY: Central line placement COMPARISON: Exam done earlier today. FINDINGS: The patient is rotated on this examination. There is been placement of a right-sided centra l line overlying the region of the superior vena cava. No signs of pneumothorax. No other interval change. IMPRESSION: Right-sided central line placement. No signs of pneumothorax.
--- NOTE | 2019-11-03 18:28 | PDOC.FPRHP ---
- History of Present Illness Chief Complaint: AMS History of Present Illness: Pt is an 83 yo male who presented to the emergency department via EMS with a suspected 4 day history of suspected urinary tract infection. He was tachycardic , febrile, and tachypneic. Presented on Bipap. In the emergency department pt was intubated secondary to acute hypoxic respiratory failure. He was found to have blood in urine. At this time CTA is pending and he is being transferred to the CCU. Hx unable to obtain due to pt's mentation, intubated. - Allergies/Adverse Reactions Allergies Allergy/AdvReac Type Severity Reaction Status Date / Time No Known Allergies Allergy Verified 11/03/19 21:10 - Home Medications Medication Instructions Recorded Confirmed Type Multivitamin [Multivitamins] 1 cap PER TUBE DAILY 02/10/15 11/04/19 History Tamsulosin HCl [Flomax] 0.4 mg PER TUBE HS 02/10/15 11/04/19 History Acetaminophen [Tylenol] 650 mg PER TUBE Q6HR PRN 03/11/19 11/04/19 History Atorvastatin Calcium 10 mg PER TUBE HS 03/11/19 11/04/19 History Ipratropium/Albuterol Sulfate 3 ml NEB Q4H PRN #1 box 08/24/19 11/04/19 Rx [DuoNeb] Budesonide [Pulmicort] 0.5 mg IH Q12HR PRN 10/10/19 11/04/19 History Ondansetron [Zofran ODT] 4 mg PER TUBE Q6HR PRN 10/10/19 11/04/19 History Pramoxine HCl/Calamine [Caladryl 1 applic TP BID PRN 10/10/19 11/04/19 History 1%-8% Lotion] levETIRAcetam [Keppra] 500 mg PER TUBE BID 10/10/19 11/04/19 History Aspirin Chewable [Aspirin Chewable 81 mg PER TUBE DAILY 11/04/19 11/04/19 History Tablet] Finasteride [Proscar] 5 mg PER TUBE DAILY 11/04/19 11/04/19 History Metoprolol Tartrate [Lopressor] 25 mg PER TUBE BID 11/04/19 11/04/19 History Nitroglycerin 0.4 mg SL Q5MIN PRN MDD 3 doses 11/04/19 11/04/19 History Pantoprazole [Protonix] 40 mg PER TUBE DAILY 11/04/19 11/04/19 History Potassium Chloride [Klor-Con] 20 meq PER TUBE DAILY 11/04/19 11/04/19 History - History PMHx: COPD, BPH, HLD, GERD, Schizophrenia PSHx: unable to obtain due to mentation FHx: unable to obtain due to mentation Social: unable to obtain due to mentation - Review of Systems ROS unobtainable: due to mental status - Vital signs BP: 171/90 HR: 155 RR: 44 Tmax: 101.1 Pox: 100% on CPAP Wt: 70.3 kg - Physical Exam -Constitutional: intubated, watson in place with red/purple urine HEENT: normocephalic and atraumatic Neck: FROM, trachea midline -Heart: tachycardic, no murmurs appreciated -Lungs: decreased breath sounds bilaterally Abdomen: soft, bowel sounds present -Neurological: intubated Heme/Lymphatic: no purpura, no petechia FMR H&P: Results - Labs Result Diagrams: 11/03/19 22:57 11/03/19 16:18 Lab results: WBC 15.1 thou/uL (4.8-10.8) H 11/03/19 16:18 Hgb 9.2 g/dL (14.0-18.0) L 11/03/19 16:18 Hct 28.5 % (42.0-52.0) L 11/03/19 16:18 MCV 94.0 fL (78.0-98.0) 11/03/19 16:18 Plt Count 603 thou/uL (130-400) H 11/03/19 16:18 Band Neuts % (Manual) 35 % (5-11) H 11/03/19 16:18 ABG pH 7.27 (7.35-7.45) L 11/03/19 16:45 ABG pCO2 56.9 mmHg (35.0-45.0) H 11/03/19 16:45 ABG pO2 94.6 mmHg (> 60.0) H 11/03/19 16:45 Sodium 133 mmol/L (136-145) L 11/03/19 16:18 Potassium 5.1 mmol/L (3.5-5.1) 11/03/19 16:18 Chloride 100 mmol/L (98-107) 11/03/19 16:18 Carbon Dioxide 25 mmol/L (23-31) 11/03/19 16:18 BUN 18 mg/dL (8.4-25.7) 11/03/19 16:18 Creatinine 0.94 mg/dL (0.7-1.3) 11/03/19 16:18 Glucose 158 mg/dL (83-110) H 11/03/19 16:18 Lactic Acid 1.3 mmol/L (0.5-2.2) 11/03/19 16:18 Calcium 9.0 mg/dL (7.8-10.44) 11/03/19 16:18 Total Bilirubin 0.2 mg/dL (0.2-1.2) 11/03/19 16:18 AST 29 U/L (5-34) 11/03/19 16:18 ALT 28 U/L (8-55) 11/03/19 16:18 Alkaline Phosphatase 75 U/L (40-110) 11/03/19 16:18 Serum Total Protein 6.7 g/dL (5.8-8.1) 11/03/19 16:18 Albumin 3.2 g/dL (3.4-4.8) L 11/03/19 16:18 FMR H&P: A/P - Problem List (1) Sepsis Current Visit: Yes Status: Acute Code(s): A41.9 - SEPSIS, UNSPECIFIED ORGANISM (2) Urinary tract infection Current Visit: Yes Status: Acute (3) Pneumonia Current Visit: Yes Status: Acute Code(s): J18.9 - PNEUMONIA, UNSPECIFIED ORGANISM (4) GI bleed Current Visit: Yes Status: Acute Code(s): K92.2 - GASTROINTESTINAL HEMORRHAGE, UNSPECIFIED (5) Acute pulmonary embolism Current Visit: No Status: Acute Code(s): I26.99 - OTHER PULMONARY EMBOLISM WITHOUT ACUTE COR PULMONALE (6) Acute respiratory failure with hypoxia Current Visit: No Status: Acute Code(s): J96.01 - ACUTE RESPIRATORY FAILURE WITH HYPOXIA (7) COPD exacerbation Current Visit: No Status: Acute Code(s): J44.1 - CHRONIC OBSTRUCTIVE PULMONARY DISEASE W (ACUTE) EXACERBATION (8) HLD (hyperlipidemia) Current Visit: No Status: Acute Code(s): E78.5 - HYPERLIPIDEMIA, UNSPECIFIED - Plan Pt is an 83 yo male here for acute respiratory failure, hypoxia requiring intubation 2/2 PE, pneumonia. Pt is bleeding at multiple sites: # Acute hypoxia, Respiratory Failure 2/2 pneumonia, PE - pt intubated in the emergency department, central line placed - treat underlying causes # Pneumonia - meropenem, vanc initiated # Pulmonary Embolism - unable to initiate therapy as pt in anemic, NG tube removed 200 mls blood in the emergency department # Urinary Tract Infection - meropenem, vanc initiated # Hematuria Blood appeared to be in watson catheter bag. # GI Bleed 300 mls total removed yesterday, early am - GI consulted, Dr. Cherry; recommended serial H/H's, did not want to scope at this time as DIC possible reason for bleeding; appreciate recommendations # Gross bleeding at multiple sites - possible DIC, labs pending - transfuse 2 U blood # AMS CT Head negative for acute abnormalities - monitor for resolution once extubated and resolution of infections. Fluids: LR 125 mls/hr Diet: NPO VTE: none Code: Full Dispo: > 48 hours, admit to ICU FMR H&P: Upper Level - Plan Date/Time: 11/03/191827 I, Heath Camacho MD, have evaluated this patient and agree with findings/plan as outlined by internal controls analyst resident. Pertinent changes/additions are listed here. Blake Flaherty is an 83 year old F with a PMH of BPH, COPD, GERD, HLD and seizure disorder who was brought into ED by EMS for suspected UTI, AMS, dyspnea progressively worsening over previous four days. History obtained from ERMD and records due to patient being intubated. In the ED, patient had BP of 171/90 , Pulse 155, RR 44, Temp 101.1. ABG was done showing pH 7.27, pCO2 56.9 and pO2 94.6. Decision was made to intubate patient due to respiratory distress and acidemia. He was given etomidate and succinylcholine and intubated. He also had CVC placed in R IJ. NG tube was placed and returned bright red blood, 100 cc. Gastroccult was positive. CT chest showed patchy upper and lower lobe infiltrates bilaterally as well as right upper lobe segmental branch PE. Labs significant for WBC 15.1 with bandemia, Hg 9.2, Hct 28.5, platelets 603. Lactic acid 1.3. BMP significant for Na 133. UA showed gross hematuria, >50 RBC , 1+ bacteria. EKG showed sinus tachycardia, no ST changes. CXRs showed good ET tube placement and NG tube placement. Patient was started on Meropenem and protonix 80 IV. Sedation with propofol and fentanyl. Dr. Avendaño was consulted in the ED for CCU management. Once patient arrived to floor, NG output continued and he had an additional 200 cc of bright red blood return. Repeat Hg dropped to 7.7 and BPs were consistently in the 90s systolic. Dr. Cherry was consulted. Patient admitted to CCU for acute hypoxic respiratory failure 2/2 pneumonia as well as acute GI bleed and PE. DIC suspected in setting of GI bleed and segmental PEs. Ordered fibrinogen and fibrin split products, will trend H/H. Ordered 2 U pRBC to be transfused. Continue merepenem and added Vanc due to recent hospitalizations. Holding anticoagulation due to bleed and concern for DIC. Sedation and CCU electrolyte protocol ordered. Will transfuse as needed. R IJ CVC in place as well as watson cath. Anticipate hospital stay > 48 hours. Please see internal controls analyst note above for full H&P, which I have reviewed and agree with. Addendum - Attending - Attending Attestation Date/Time: 11/04/19 0902 I personally evaluated the patient and discussed the management with Dr. Camacho and Joaquim. I agree with the History, Examination, Assessment and Plan documented above with any addition or exceptions noted below. Patient with essentially no history available. Upon arrival to ER failed CPAP and was intubed. CXR relatively unremarkable but CTA with infiltrates and subsegmental PE. Quite a bit of blood returned from OGT and he has what appears to be blood urine. Plan for broad spectrum antibiotics, cultures, trend h&h and transfuse PRN, consult GI and p/cc.
[2019-11-03 18:31] LABS: Clarity Opaque (Clear)
[2019-11-03 18:32] LABS: Bilirubin Unable to Interpret (Negative); Blood, Urine Unable to Interpret (Negative); Glucose, Urine (Dipstick) Unable to Interpret mg/dL (Negative); Leukocyte Unable to Interpret Leu/uL (Negative); Nitrite Unable to Interpret (Negative); Protein, Urine (Dipstick) Unable to Interpret mg/dL (Neg-Trace); RBC/HPF Greater than 50 HPF (0-3); Urobilinogen UNABLE TO INTERPRET mg/dL (Less than 2)
[2019-11-03 18:33] LABS: Bacteria/HPF 1+ HPF (None Seen); Transitional Epithelial 0-3 HPF (None Seen)
[2019-11-03] MEDS ORDERED: Lorazepam 2 MG/ML VIAL SLOW IVP PRN (20:15)
[2019-11-03] MEDS ORDERED: DISCONTINUE PREVIOUS NARCOTIC PAIN MEDICATIONS AND BENZODIAZEPINES FS SCH (20:15)
[2019-11-03] MEDS ORDERED: Fentanyl BOLUS 250 ML IVPB PRN (20:15)
[2019-11-03] MEDS ORDERED: Propofol BOLUS 1,000 MG/100 ML VIAL IV PRN (20:15)
[2019-11-03] MEDS ORDERED: Propofol 1,000 MG/100 ML VIAL IV PRN (20:15)
[2019-11-03] MEDS ORDERED: Acetaminophen 325 MG TAB PO PRN (20:16)
[2019-11-03] MEDS ORDERED: Ondansetron ODT 4 MG TAB SL PRN (20:16)
[2019-11-03] MEDS ORDERED: Ondansetron PF 4 MG/2 ML Vial IVP PRN (20:16)
--- NOTE | 2019-11-03 20:17 | CT ---
CT OF BRAIN PERFORMED WITHOUT CONTRAST ENHANCEMENT: 11/03/19 HISTORY: Altered mental status. COMPARISON: A 03/10/19 exam. There is generalized ventricular and sulcal prominence. There is decreased attenuation to the periven tricular white matter consistent with chronic white matter change. 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 No hemorrhage or mass effect. Mastoid air cells show the right mastoid air cells to be poorly aerated. This appears to be developme ntal and similar to the previous exam. The visualized sinuses are clear. IMPRESSION: No acute intracranial abnormalities. 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 POS: [facility]
[2019-11-03] MEDS ORDERED: Acetaminophen 650 MG Suppository PR PRN (20:27)
[2019-11-03] MEDS ORDERED: Sodium Chloride 0.9% 1,000 ML IV SCH (20:30)
--- NOTE | 2019-11-03 20:31 | CT ---
CT ANGIO OF CHEST PERFORMED WITH INTRAVENOUS CONTRAST ENHANCEMENT WITH 3D RECONSTRUCTION: 11/03/19 HISTORY: Shortness of breath, tachycardic, febrile. There are patchy bilateral upper and lower lobe infiltrative process with more confluent pneumonic ch anges in the retrocardiac region of the left lower lobe. The thoracic aorta is normal in caliber. There is good pulmonary artery opacification. There is a rig ht upper lobe pulmonary embolus in a segmental branch. There is possibly a tiny embolus within the li ngular subsegmental branch and some very subtle questionable subsegmental emboli within a subsegmenta l branch within the right lower lobe. Hypodensities within the liver are similar to a previous 08/23/19 CT examination. Endotracheal tube is seen. The tube is just at the level of the right main stem bronchus and should b e retracted slightly for better placement. Gastrostomy tube is noted to be in place. IMPRESSION: 1. Patchy bilateral infiltrates with a more confluent area of consolidation in the left lower lo be. 2. There is evidence for pulmonary embolus with fairly minimal changes seen. The largest embolus is at the beginning branching of a segmental branch in the right upper lobe and there is probably so me small subsegmental emboli within the right lower lobe and lingular region. 3. Endotracheal tube, the tip of which is at the right main stem bronchus. Could be retracted sl ightly for better placement. 4. These findings were telephoned to patient's nurse, Imani. POS: [facility]
[2019-11-03] MEDS ORDERED: CCU Electrolyte Replacement 1 EACH FS ONE (20:33)
[2019-11-03] MEDS ORDERED: Ventilator Sedation Protocol 1 EACH FS ONE (20:38)
[2019-11-03] MEDS: Lactated Ringer's 1,000 ML IV SCH (20:41)
[2019-11-03] MEDS ORDERED: Magnesium Oxide 400 MG TAB PO PRN ×2 (20:56)
[2019-11-03] MEDS ORDERED: Potassium Chloride 40 MEQ in Premix Bag 1 BAG IVPB PRN (20:56)
[2019-11-03] MEDS ORDERED: Potassium Chloride 40 MEQ in Sodium Chloride 0.9% 250 ML 250 ML IVPB PRN (20:56)
[2019-11-03] MEDS ORDERED: Potassium Phosphate 9 MMOL in Sodium Chloride 0.9% 100 ML IVPB PRN (20:56)
[2019-11-03] MEDS ORDERED: Potassium Phosphate 12 MMOL in Sodium Chloride 0.9% 250 ML 250 ML IV PRN (20:56)
[2019-11-03] MEDS ORDERED: Potassium Phosphate 15 MMOL in Sodium Chloride 0.9% 250 ML 250 ML IV PRN (20:56)
[2019-11-03] MEDS ORDERED: Potassium Chloride 20 MEQ TAB PO PRN (20:56)
[2019-11-03] MEDS ORDERED: CCU ELECTROLYTE REPLACEMENT PROTOCOL FS PRN (20:56)
[2019-11-03] MEDS ORDERED: PHOS-NAK 1 PKT PACK PO PRN ×2 (20:56)
[2019-11-03] MEDS ORDERED: Magnesium 2 GM/50 ML 2 GM in Premix Bag 1 BAG IVPB PRN (20:56)
[2019-11-03 21:29] LABS: INR-International Normal Ratio 1.3; PTT 30.3 SEC (22.9-36.1); Prothrombin Time 16.3 SEC (12.0-14.7)
[2019-11-03 21:42] LABS: Iron 10 ug/dL (65-175); Iron Binding Capacity, Total 241 mcg/dL (261-462)
[2019-11-03] MEDS: Pantoprazole 40 MG VIAL IVP SCH (21:44)
[2019-11-03] MEDS ORDERED: Vancomycin HCl 1.75 GM in Sodium Chloride 0.9% 500 ML IVPB SCH (22:00)
[2019-11-03 22:02] LABS: Ferritin 285.18 ng/mL (22-322)
[2019-11-03 23:11] LABS: Hemoglobin 7.7 g/dL (14.0-18.0); Platelet Count 465 thou/uL (130-400)
[2019-11-03 23:53] LABS: Fibrinogen 394 mg/dL (253-463)
[2019-11-04 01:02] LABS: FSP-Qualitative ABNORMAL (Normal); FSP-Semiquantitative >=40 & <80 mcg/mL (Less than 5)
[2019-11-04] MEDS: Lactated Ringer's 1,000 ML IV SCH (06:04)
[2019-11-04] MEDS: Pantoprazole 40 MG VIAL IVP SCH ×2 (08:52→20:21)
[2019-11-04] MEDS ORDERED: FLU VACC TS2019-20(65YR UP)/PF 180 MCG/0.5 ML SYRINGE IM ONE (09:00)
[2019-11-04] MEDS ORDERED: Lactated Ringer's 1,000 ML IV SCH ×2 (09:15→13:54)
[2019-11-04 09:31] LABS: #Eosinphils 0.2 thou/uL (0.0-0.7); #Lymphocytes 1.6 thou/uL (1.20-3.40); #Monocytes 0.8 thou/uL (0.11-0.59); #Neutrophils 9.4 thou/uL (1.40-6.50); %Basophils 0.4 % (0.0-1.0); %Eosinophils 1.6 % (0.0-10.0); %Lymphocytes 13.4 % (21.0-51.0); %Monocytes 6.3 % (0.0-10.0); %Neutrophils 78.3 % (42.0-75.0); Hemoglobin 9.4 g/dL (14.0-18.0); Mean Corpuscular HGB CONC 33.4 g/dL (32.0-36.0); Mean Corpuscular Hemoglobin 31.1 pg (27.0-31.0); Mean Corpuscular Volume 93.1 fL (78.0-98.0); Platelet Count 381 thou/uL (130-400); RBC Distribution Width 12.8 % (11.5-14.5); White Blood Cell (WBC) Count 12.1 thou/uL (4.8-10.8)
[2019-11-04 09:44] LABS: ALT (SGPT) 19 U/L (8-55); AST (SGOT) 19 U/L (5-34); Albumin 2.7 g/dL (3.4-4.8); Alkaline Phosphatase 56 U/L (40-110); Anion Gap 10 mmol/L (10-20); BUN (Urea Nitrogen) 17 mg/dL (8.4-25.7); Bilirubin, Total 0.8 mg/dL (0.2-1.2); Calc. Creatinine Clearance 61 mL/min (70-130); Calcium 8.6 mg/dL (7.8-10.44); Carbon Dioxide 25 mmol/L (23-31); Chloride 104 mmol/L (98-107); Estimated GFR-MDRD Greater than 90; Globulin 2.9 g/dL (2.4-3.5); Glucose 100 mg/dL (83-110); Potassium 4.4 mmol/L (3.5-5.1); Protein, Total 5.6 g/dL (5.8-8.1); Sodium 135 mmol/L (136-145)
--- NOTE | 2019-11-04 09:50 | PDOC.FM ---
- Subjective Subjective: pt intubated, nurse reports no acute events, no more blood per NG tube. no more blood per watson cath. - Objective Vital Signs & Weight: Vital Signs (12 hours) Temp Pulse Resp 11/04/19 08:05 81 11/04/19 08:00 99.0 F 11/04/19 06:00 20 11/04/19 04:00 98.6 F 20 11/04/19 02:00 20 11/04/19 00:00 98.5 F 20 11/03/19 22:00 20 Weight Weight 71 kg Most Recent Monitor Data Heart Rate from ECG 121 NIBP 90/57 NIBP BP-Mean 68 Respiration from ECG 31 SpO2 96 I&O: 11/03/19 11/04/19 11/05/19 06:59 06:59 06:59 Intake Total 1743.6 0 Output Total 520 50 Balance 1223.6 -50 Result Diagrams: 11/04/19 09:06 11/04/19 09:06 Phys Exam - Physical Examination Constitutional: NAD HEENT: moist MMs, sclera anicteric Neck: no JVD, supple bilateral rhonchi and crackles Cardiovascular: RRR, no significant murmur Gastrointestinal: soft, no distention Musculoskeletal: pulses present sedated Deviation from normal: sedated Skin: no rash, normal turgor Dx/Plan (1) GI bleed Code(s): K92.2 - GASTROINTESTINAL HEMORRHAGE, UNSPECIFIED Status: Acute (2) Pneumonia Code(s): J18.9 - PNEUMONIA, UNSPECIFIED ORGANISM Status: Acute (3) Sepsis Code(s): A41.9 - SEPSIS, UNSPECIFIED ORGANISM Status: Acute (4) Urinary tract infection Status: Acute (5) GARCÍA (acute kidney injury) Code(s): N17.9 - ACUTE KIDNEY FAILURE, UNSPECIFIED Status: Acute (6) Acute pulmonary embolism Code(s): I26.99 - OTHER PULMONARY EMBOLISM WITHOUT ACUTE COR PULMONALE Status : Acute (7) Acute respiratory failure with hypoxia Code(s): J96.01 - ACUTE RESPIRATORY FAILURE WITH HYPOXIA Status: Acute (8) COPD (chronic obstructive pulmonary disease) Status: Acute (9) Dementia Code(s): F03.90 - UNSPECIFIED DEMENTIA WITHOUT BEHAVIORAL DISTURBANCE Status: Chronic - Plan Plan: Pt is an 83 yo male here for acute respiratory failure, hypoxia requiring intubation 2/2 PE, pneumonia. Pt is bleeding at multiple sites: Acute hypoxia, Respiratory Failure 2/2 pneumonia, PE A- pt intubated in the emergency department, central line placed P- treat underlying causes Septic shock 2/2 Pneumonia A- per CT bilateral infiltrate, considering hospitalization approximately 1 month ago pt is on merrem and vanc. P- meropenem, vanc -LR 125/hr -f/u BCx -monitor BPs, will consider levophed if BP drops again Pulmonary Embolism A- seen per CT, - unable to initiate therapy as pt in anemic with UGIB, NG tube removed 300 mls blood since admission. concern for possible DIC P- will initiate heparin drip or th lovenox if pt worsens in respiratory status Urinary Tract Infection -ABX per plan above Hematuria A- 2/2 UTI vs. DIC. Blood appeared to be in watson catheter bag. P- ABX per plans above, f/u UCx. GI Bleed A- 300 mls total removed on admission. GI consulted, Dr. Cherry; recommended serial H/H's, did not want to scope at this time as DIC possible reason for bleeding; appreciate recommendations P- will monitor NG output -plan for possible scope after DIC ruled out/resolved -f/u GI recs Gross bleeding at multiple sites A- possible DIC, labs pending. s/p transfuse 2u PRBC P- monitor for further bleeding AMS A- CT Head negative for acute abnormalities P- monitor for resolution once extubated and resolution of infections. COPD A- unsure of home medications P- will reconcile once pt is extubated BPH, HLD, GERD, Schizophrenia -restart home meds once extubated Fluids: LR 125 mls/hr Diet: NPO VTE: none Code: Full
--- NOTE | 2019-11-04 11:19 | PRG ---
DATE OF SERVICE: 11/04/2019 I have examined the patient and discussed the case with Dr. Kyle Lewis. I agree with his assessment and plan except that given that Mr. Flaherty has a normal PTT, normal to elevated platelets, and a normal fibrinogen, he does not meet criteria for DIC. Job ID: [id number]
[2019-11-04 12:20] LABS: Mean Corpuscular HGB CONC 33.5 g/dL (32.0-36.0); Mean Corpuscular Hemoglobin 31.1 pg (27.0-31.0); Mean Corpuscular Volume 92.9 fL (78.0-98.0); Mean Platelet Volume 6.4 fL (7.4-10.4); Platelet Count 395 thou/uL (130-400); RBC Distribution Width 12.9 % (11.5-14.5); White Blood Cell (WBC) Count 11.5 thou/uL (4.8-10.8)
[2019-11-04] MEDS: Cefepime 2 GM in Sodium Chloride 0.9% 100 ML IVPB SCH (15:07)
--- NOTE | 2019-11-04 16:47 | CON ---
DATE OF CONSULTATION: 11/04/2019 SERVICE: Pulmonary Medicine. REASON FOR CONSULTATION: Respiratory failure/ventilator. HISTORY OF PRESENT ILLNESS: The patient is an 83-year-old male with past medical history significant for advanced debility. He is a long term patient, apparently bed-bound based on what my understanding is. That being said, his mentation ended up being off. He got intubated to protect his airway. The four days preceding this event, however, he was having some fevers, tachypnea, and tachycardia. There was a suspicion that he might have had a urinary tract infection in the emergency department. I cannot get any additional elements of the history from the patient currently. PAST MEDICAL HISTORY: 1. COPD. 2. BPH. 3. Dyslipidemia. 4. Gastroesophageal reflux disease. 5. Schizophrenia. PAST SURGICAL HISTORY: Unknown. SOCIAL HISTORY: Unknown. FAMILY HISTORY: Unknown. ALLERGIES: NO KNOWN DRUG ALLERGIES. MEDICATIONS: List of the patient's inpatient medications were reviewed. Multiple updates were made at this time. REVIEW OF SYSTEMS: This cannot be obtained as the patient is currently intubated and sedated. PHYSICAL EXAMINATION: VITAL SIGNS: Afebrile. Pulse 107, blood pressure 107/59, respirations 14, saturation 100%, currently on 21% FiO2 and a PEEP of 5. GENERAL: The patient is intubated and sedated. HEENT: Normocephalic and atraumatic. Sclerae white. Conjunctivae pink. Oral mucosa is moist without lesions. LUNGS: Decent air entry. Dependent crackles are noted. No prolonged expiratory phase or wheezing appreciated. HEART: Normal rate, regular. ABDOMEN: Soft, nontender, nondistended. Bowel sounds are soft. No tenderness to palpation. There is no rebound or guarding. Bowel sounds are hypoactive. : Coto catheter in place. MUSCULOSKELETAL: No cyanosis or clubbing. There is 2+ pitting throughout. LABORATORY DATA: WBC 11.5, hemoglobin 9.0, platelets 395,000. D-dimer 17.89. PH 7.27, pCO2 56, and PO2 94. Basic metabolic profile is unremarkable. Liver function studies are unremarkable. Iron is low, ferritin falls within the normal limits, however. TIBC is also low. Liver function studies are unremarkable. CRP 5.43, procalcitonin 0.44, vitamin B12 is low. Urinalysis cannot be interpreted. Urine culture is negative at 24 hours. Blood cultures x2 are negative. Occult blood from the GI aspirate is strongly positive. IMAGIN. Chest x-ray demonstrates right IJ central venous catheter is in excellent position. There are bilateral patchy infiltrates throughout bilateral lung ibarra. No obvious effusion is noted. There is some volume loss on the left. Enteric catheter courses below the level of the diaphragm. Endotracheal tube is in good position. 2. CTA of the chest demonstrates patchy bilateral infiltrates, more confluent in the left lower lobe. There is some pulmonary emboli present, but the clot burden overall is small. 3. CT of the brain demonstrates no acute intracranial abnormality. ASSESSMENT: 1. Acute hypoxic respiratory failure, resolving. 2. Acute blood loss anemia. 3. Gastrointestinal bleed, suspected. 4. Acute pulmonary embolism with very minimal clot burden. 5. Healthcare-associated pneumonia. DISCUSSION AND PLAN: I feel that these pulmonary emboli are pretty small. I am doubtful they are causing his hypoxic respiratory failure. This was likely secondary to the pneumonia in the left lower lobe. This is there probably because of aspiration. For the time being, it would be reasonable to hold all anticoagulation while we risk stratify him with GI for that moving forward. We will make efforts to diurese him down to euvolemia. Pulmonary/Critical Care will continue to follow along in this location. Multiple adjustments have been made to the ventilator. CRITICAL CARE TIME: 30 minutes. Job ID: [id number]
--- NOTE | 2019-11-04 19:34 | CON ---
DATE OF CONSULTATION: 11/04/2019 REASON FOR CONSULTATION: Hematemesis, anemia. CONSULTING PROVIDER: Heath Camacho MD HISTORY OF PRESENT ILLNESS: The patient is an 83-year-old male with past medical history of COPD, BPH, hyperlipidemia, GERD, and schizophrenia, who was admitted to the hospital for acute hypoxic respiratory failure and probable sepsis. At this time, the patient is intubated and sedated in the ICU with no family members at bedside, so all information obtained was through conversation with nursing staff and chart review. Per chart review, the patient was initially admitted to the ER with a suspected urinary tract infection, but was noted to have significant respiratory distress and was placed on BiPAP by EMS. While in the emergency department, he experienced acute hypoxic respiratory failure and was subsequently intubated at that time. Imaging performed while in the ER showed patchy bilateral infiltrates with consolidation in the left lower lobe, concerning for the presence of pneumonia in addition to evidence of a pulmonary embolus with the largest embolus beginning at a segmental branch in the right upper lobe. However, shortly after admission and after intubation, the patient was noted to have bleeding in the form of hematuria as well as bleeding in his IV lines and bright red blood through an NG tube, concerning for upper GI bleed. Over the course of the last 12 hours, per nursing staff, the amount of blood obtained from the OG tube has decreased significantly with approximately 200 to 300 mL while in the ER, but approximately 100 to 150 mL for the last 6 hours. Per nursing staff, he has not exhibited any emesis nor has he exhibited an any fever, hematochezia, or melena. Currently, he is sedated and doing well on mechanical ventilation. REVIEW OF SYSTEMS: A 10-category review of systems could not be obtained due to the patient's intubated status. PAST MEDICAL HISTORY: As per HPI. PAST SURGICAL HISTORY: Unknown. FAMILY HISTORY: Unknown. SOCIAL HISTORY: Unknown. OUTPATIENT MEDICATIONS: Reviewed. ALLERGIES: NO KNOWN DRUG ALLERGIES. PHYSICAL EXAMINATION: VITAL SIGNS: Temperature 98.7, pulse 129, blood pressure 134/78, respiratory rate 22, saturating 100% on mechanical ventilation. GENERAL: The patient was lying in bed, in no acute distress, intubated and sedated. HEENT: Normocephalic and atraumatic. No JVD or scleral icterus noted. CARDIOVASCULAR: Tachycardic rate, but regular rhythm. No discernible murmurs, gallops, or rubs. RESPIRATORY: Coarse breath sounds auscultated in all lung ibarra as well as expiratory wheezing auscultated in the bilateral lower lobes. ABDOMEN: Hypoactive bowel sounds. Soft, nontender. No grimacing to palpation. Nondistended. EXTREMITIES: Nonpitting edema of the bilateral feet was seen, but otherwise no cyanosis or clubbing. LABORATORY DATA: CBC with a white blood cell count of 12.1, hemoglobin 9.4, hematocrit 28, platelets 381. Chemistry with a sodium of 135, potassium 4.4, chloride 104, CO2 of 25, BUN 17, creatinine 0.95, glucose 100. AST ALT 19, alkaline phosphatase 56, total bilirubin 0.8, albumin 2.7. CRP 5.43. INR 1.3. Abnormal fibrinogen degradation products. Iron of 10, ferritin of 285, and TIBC of 241. IMAGING DATA: CT of the chest was obtained on November 03, 2019, which showed patchy bilateral upper and lower lobe infiltrative process with more confluent pneumonic changes in the left lower lobe. There was also a right upper lobe pulmonary embolus in a segmental branch as well as a smaller embolus within the lingular subsegmental branch and questionable subsegmental emboli within a subsegmental branch in the right lower lobe. The noted in the liver were unchanged when compared to previous CT scan in August 2019, and the gastrostomy tube was noted to be in appropriate position. ASSESSMENT AND PLAN: The patient is an 83-year-old male with past medical history of chronic obstructive pulmonary disease, BPH, hyperlipidemia, gastroesophageal reflux disease, schizophrenia, and recurrent urinary tract infections, presenting with pulmonary emboli, consolidation of the bilateral lower lobes concerning for pneumonia, and subsequent DIC, contributing to the coagulopathy resulting in hematemesis. Hematemesis: The patient is initially presenting with acute hypoxic respiratory failure in light of an active pneumonia and decreased fibrinogen degradation products consistent with a diagnosis of disseminated intravascular coagulopathy. At this point, the coagulopathy is more likely the reason he is having bleeding from many source including hematuria, hematemesis, and from his IV lines. Correction of this coagulopathy is paramount in terms of decreasing any sort of GI bleed and with the current management, has been able to do so somewhat with decreased bloody output from the OG tube over the last 6 hours. At this time, the differential for his hematemesis could include DIC (most likely), esophagitis, gastritis, peptic ulcer disease, arteriovenous malformation, Dieulafoy lesion, and/or GI malignancy (less likely). RECOMMENDATIONS: 1. We would continue to trend the patient's hemoglobin and hematocrit and transfuse as necessary to maintain hemoglobin and hematocrit of 7/21. 2. Continue to monitor clinically for signs of active GI bleeding. 3. We would treat the underlying source of DIC with the pneumonia being the most likely etiology at this time. 4. We would hold any anticoagulation at least for now in light of DIC and bleeding from any mucosal surface. However, the patient may need to be placed on anticoagulation here in the near future, given the presence of pulmonary emboli. 5. We will continue the patient on pantoprazole 40 mg IV b.i.d. in light of GI bleeding. 6. No endoscopic management is indicated at this time, given the patient's critical status and likelihood of DIC generating bleeding within the upper GI tract that is not easily intervened upon. We will continue to follow. Please call with any questions. Job ID: [id number]
[2019-11-04] MEDS: Vancomycin HCl 1 GM in Premix Bag 1 BAG IVPB SCH (21:51)
[2019-11-05] MEDS: Cefepime 2 GM in Sodium Chloride 0.9% 100 ML IVPB SCH ×2 (02:49→14:39)
[2019-11-05 05:01] LABS: #Eosinphils 0.7 thou/uL (0.0-0.7); #Lymphocytes 1.3 thou/uL (1.20-3.40); #Neutrophils 10.9 thou/uL (1.40-6.50); %Basophils 0.2 % (0.0-1.0); %Eosinophils 4.9 % (0.0-10.0); %Lymphocytes 9.4 % (21.0-51.0); %Neutrophils 78.5 % (42.0-75.0); Hemoglobin 9.2 g/dL (14.0-18.0); Mean Corpuscular HGB CONC 33.2 g/dL (32.0-36.0); Mean Corpuscular Hemoglobin 30.9 pg (27.0-31.0); Mean Platelet Volume 6.2 fL (7.4-10.4); Platelet Count 431 thou/uL (130-400); RBC Distribution Width 12.9 % (11.5-14.5); Red Blood Cell (RBC) Count 2.97 mill/uL (4.70-6.10); White Blood Cell (WBC) Count 13.9 thou/uL (4.8-10.8)
[2019-11-05 05:13] LABS: Fibrinogen 410 mg/dL (253-463)
[2019-11-05 05:14] LABS: INR-International Normal Ratio 1.3; PTT 39.6 SEC (22.9-36.1); Prothrombin Time 16.4 SEC (12.0-14.7)
[2019-11-05 05:22] LABS: D-Dimer Test 12.32 *mcg/mL (0.27-0.43)
[2019-11-05 05:24] LABS: FSP-Qualitative ABNORMAL (Normal); FSP-Semiquantitative >=40 & <80 mcg/mL (Less than 5)
[2019-11-05 05:30] LABS: ALT (SGPT) 19 U/L (8-55); AST (SGOT) 22 U/L (5-34); Albumin 2.8 g/dL (3.4-4.8); Alkaline Phosphatase 64 U/L (40-110); Anion Gap 10 mmol/L (10-20); BUN (Urea Nitrogen) 16 mg/dL (8.4-25.7); Bilirubin, Total 0.6 mg/dL (0.2-1.2); Calc. Creatinine Clearance 62 mL/min (70-130); Carbon Dioxide 26 mmol/L (23-31); Chloride 103 mmol/L (98-107); Estimated GFR-MDRD Greater than 90; Globulin 2.9 g/dL (2.4-3.5); Glucose 82 mg/dL (83-110); Magnesium 1.8 mg/dL (1.6-2.6); Protein, Total 5.7 g/dL (5.8-8.1); Sodium 135 mmol/L (136-145)
[2019-11-05 05:37] LABS: Phosphorus 1.9 mg/dL (2.3-4.7)
--- NOTE | 2019-11-05 06:19 | PDOC.FM ---
- Subjective Subjective: pt sedated and resting. urine appears to be clear now. - Objective Vital Signs & Weight: Vital Signs (12 hours) Temp Pulse Resp BP Pulse Ox 11/05/19 04:00 99.4 F 18 11/05/19 03:15 92 103/58 L 11/05/19 02:00 19 11/05/19 00:00 99.6 F 18 11/04/19 22:41 101 H 97/60 11/04/19 22:00 13 11/04/19 20:00 99 F 19 100 11/04/19 18:56 102 H 101/55 L Weight Admit Weight 70.76 kg Weight 71 kg Most Recent Monitor Data Heart Rate from ECG 96 NIBP 108/63 NIBP BP-Mean 78 Respiration from ECG 17 SpO2 100 I&O: 11/03/19 11/04/19 11/05/19 06:59 06:59 06:59 Intake Total 1743.6 1889.1 Output Total 520 788 Balance 1223.6 1101.1 Result Diagrams: 11/05/19 04:30 11/05/19 04:30 Phys Exam - Physical Examination Constitutional: NAD HEENT: moist MMs, sclera anicteric Neck: no JVD, supple bilateral expiratory rales and crackles Cardiovascular: RRR, no significant murmur Gastrointestinal: soft, non-tender Musculoskeletal: pulses present edema on hands and feet sedated Skin: no rash, normal turgor Dx/Plan (1) GI bleed Code(s): K92.2 - GASTROINTESTINAL HEMORRHAGE, UNSPECIFIED Status: Acute (2) Pneumonia Code(s): J18.9 - PNEUMONIA, UNSPECIFIED ORGANISM Status: Acute (3) Sepsis Code(s): A41.9 - SEPSIS, UNSPECIFIED ORGANISM Status: Acute (4) Urinary tract infection Status: Acute (5) GARCÍA (acute kidney injury) Code(s): N17.9 - ACUTE KIDNEY FAILURE, UNSPECIFIED Status: Acute (6) Acute pulmonary embolism Code(s): I26.99 - OTHER PULMONARY EMBOLISM WITHOUT ACUTE COR PULMONALE Status : Acute (7) Acute respiratory failure with hypoxia Code(s): J96.01 - ACUTE RESPIRATORY FAILURE WITH HYPOXIA Status: Acute (8) COPD (chronic obstructive pulmonary disease) Status: Acute (9) Dementia Code(s): F03.90 - UNSPECIFIED DEMENTIA WITHOUT BEHAVIORAL DISTURBANCE Status: Chronic - Plan Plan: Pt is an 83 yo male here for acute respiratory failure, hypoxia requiring intubation 2/2 PE, pneumonia. Pt is bleeding at multiple sites: Fluid overload A- likely 2/2 2u PRBC P- lasix this AM -IVF are KVO per pulm Acute hypoxia, Respiratory Failure 2/2 pneumonia, PE A- pt intubated in the emergency department, central line placed P- treat underlying causes Septic shock 2/2 Pneumonia A- per CT bilateral infiltrate, considering hospitalization approximately 1 month ago pt is on cefepime and vanc. P- cefepime, vanc -f/u BCx -monitor BPs, will consider levophed if BP drops again Pulmonary Embolism A- seen per CT, - unable to initiate therapy as pt in anemic with UGIB, NG tube removed 300 mls blood since admission. concern for possible DIC P- will initiate heparin drip or th lovenox if pt worsens in respiratory status Urinary Tract Infection -ABX per plan above Hematuria A- resolving. 2/2 UTI vs. DIC. Blood appeared to be in watson catheter bag. P- ABX per plans above, f/u UCx. GI Bleed A- 300 mls total removed on admission. GI consulted, Dr. Cherry; recommended serial H/H's, did not want to scope at this time as DIC possible reason for bleeding; appreciate recommendations P- will monitor NG output -plan for possible scope after DIC ruled out/resolved -f/u GI recs Gross bleeding at multiple sites A- seems to be improving. possible DIC, labs pending. s/p transfuse 2u PRBC P- monitor for further bleeding AMS A- CT Head negative for acute abnormalities P- monitor for resolution once extubated and resolution of infections. COPD A- unsure of home medications P- will reconcile once pt is extubated BPH, HLD, GERD, Schizophrenia -restart home meds once extubated Fluids: KVO Diet: NPO VTE: none Code: Full
[2019-11-05] MEDS: Furosemide 40 MG/4 ML VIAL SLOW IVP SCH (06:45)
[2019-11-05] MEDS: Pantoprazole 40 MG VIAL IVP SCH ×2 (09:58→21:53)
--- NOTE | 2019-11-05 10:53 | PRG ---
DATE OF SERVICE: 11/05/2019 I have examined the patient. I have discussed the case with Dr. Kyle Lewis and agree with his assessment and plan. Job ID: [id number]
[2019-11-05] MEDS ORDERED: Magnesium 2 GM/50 ML 2 GM in Premix Bag 1 BAG IVPB SCH (13:15)
[2019-11-05] MEDS ORDERED: Potassium Phosphate 30 MMOL in Sodium Chloride 0.9% 500 ML IVPB SCH (13:30)
--- NOTE | 2019-11-05 13:37 | PRG ---
DATE OF SERVICE: 11/05/2019 SERVICE: Pulmonary Medicine. INTERVAL HISTORY: The patient is doing fine from respiratory standpoint. He got a dose of Lasix this morning. He has been diuresing beautifully. His oxygen requirements are decreasing. Otherwise, there has been no interval change to his condition. He is waking up a little bit more and following some simple commands. He has been on a sedation holiday for over 4 hours. He appears to be fairly cool, calm, and collected. That being said, I put him on a CPAP trial at 5/5, and his volumes were just over 100 mL. He became very tachypneic in a short period of time. As such, we gave him more support. He is going to remain like this as long as he can tolerate it. PHYSICAL EXAMINATION: VITAL SIGNS: Afebrile, pulse 102, blood pressure 107/65, respirations 18, saturations 100% on 23% FiO2 and a PEEP of 5. GENERAL: The patient is awake and alert. He attends. LUNGS: No prolonged expiratory phase or wheezing is appreciated. HEART: Normal rate, regular. ABDOMEN: Soft, nontender, nondistended. Bowel sounds are positive. MUSCULOSKELETAL: No cyanosis or clubbing. There is diffuse 2+ pitting throughout. LABORATORY DATA: WBC 13.9, hemoglobin 9.2, and platelets 431,000. INR 1.3. Fibrinogen 410, D-dimer is downtrending. Sodium 135. Basic metabolic profile is unremarkable. Phosphorus 1.9. Magnesium 1.8. Liver function studies are unremarkable. Blood cultures x2 and urine culture are negative to date. ASSESSMENT: 1. Acute hypoxic respiratory failure, resolved. 2. Acute blood loss anemia. 3. Gastrointestinal bleed. 4. Acute pulmonary embolism with minimal clot burden. 5. Healthcare-associated pneumonia. DISCUSSION AND PLAN: We can trend the hemoglobins for an additional 24 hours. If they remain stable, we will cautiously introduce anticoagulation. We will continue to diurese him down to euvolemia. At this point, he is not strong enough to perform spontaneous breathing trial well. We will continue to hold sedation as long as he can tolerate it and increase him on his pressure support ventilation. This will be our mode of ventilation for the next 24 hours if possible. CRITICAL CARE TIME: 30 minutes. Job ID: [id number]
[2019-11-05] MEDS ORDERED: Pancrelipase DR 12000 1 CAP FS PRN (13:48)
[2019-11-05] MEDS ORDERED: Sodium Bicarbonate Tab 325 MG TAB PER TUBE PRN (13:48)
[2019-11-05] MEDS ORDERED: Furosemide 40 MG/4 ML VIAL SLOW IVP SCH (17:00)
[2019-11-05 21:37] LABS: Vancomycin, Trough 12.3 ug/mL
[2019-11-05] MEDS: Vancomycin HCl 1 GM in Premix Bag 1 BAG IVPB SCH (21:54)
[2019-11-06] MEDS: Cefepime 2 GM in Sodium Chloride 0.9% 100 ML IVPB SCH ×2 (02:58→15:02)
[2019-11-06 04:27] LABS: #Eosinphils 0.7 thou/uL (0.0-0.7); #Monocytes 0.8 thou/uL (0.11-0.59); #Neutrophils 10.9 thou/uL (1.40-6.50); %Basophils 0.2 % (0.0-1.0); %Eosinophils 4.8 % (0.0-10.0); %Lymphocytes 14.2 % (21.0-51.0); %Monocytes 5.3 % (0.0-10.0); %Neutrophils 75.5 % (42.0-75.0); Hemoglobin 10.1 g/dL (14.0-18.0); Mean Corpuscular HGB CONC 33.1 g/dL (32.0-36.0); Mean Corpuscular Hemoglobin 30.7 pg (27.0-31.0); Mean Corpuscular Volume 92.6 fL (78.0-98.0); Mean Platelet Volume 6.6 fL (7.4-10.4); Platelet Count 526 thou/uL (130-400); RBC Distribution Width 12.7 % (11.5-14.5); White Blood Cell (WBC) Count 14.4 thou/uL (4.8-10.8)
[2019-11-06 04:50] LABS: ALT (SGPT) 22 U/L (8-55); AST (SGOT) 28 U/L (5-34); Alkaline Phosphatase 77 U/L (40-110); Anion Gap 13 mmol/L (10-20); BUN (Urea Nitrogen) 16 mg/dL (8.4-25.7); Bilirubin, Total 0.4 mg/dL (0.2-1.2); Calc. Creatinine Clearance 53 mL/min (70-130); Carbon Dioxide 28 mmol/L (23-31); Chloride 100 mmol/L (98-107); Estimated GFR-MDRD 76; Globulin 3.4 g/dL (2.4-3.5); Glucose 117 mg/dL (83-110); Potassium 3.5 mmol/L (3.5-5.1); Protein, Total 6.4 g/dL (5.8-8.1); Sodium 137 mmol/L (136-145)
[2019-11-06 04:51] LABS: Phosphorus 3.1 mg/dL (2.3-4.7)
[2019-11-06] MEDS: Furosemide 40 MG/4 ML VIAL SLOW IVP SCH (05:38)
--- NOTE | 2019-11-06 09:13 | PDOC.FM ---
- Subjective Subjective: on spontaneous breathing trial. pt is calm and followign commands. no apparent distress. - Objective Vital Signs & Weight: Vital Signs (12 hours) Temp Pulse Resp BP 11/06/19 07:46 105 H 113/70 11/06/19 06:00 14 11/06/19 04:30 24 H 11/06/19 04:00 98.9 F 25 H 11/06/19 03:00 99 124/70 11/06/19 02:00 23 H 11/06/19 00:00 99.2 F 20 11/05/19 22:51 100 112/70 11/05/19 22:00 19 Weight Admit Weight 70.76 kg Weight 69.2 kg Most Recent Monitor Data Heart Rate from ECG 97 NIBP 130/72 NIBP BP-Mean 91 Respiration from ECG 22 SpO2 100 I&O: 11/05/19 11/06/19 11/07/19 06:59 06:59 06:59 Intake Total 2459.4 1517 Output Total 828 2885 850 Balance 1631.4 -1368 -850 Result Diagrams: 11/06/19 04:10 11/06/19 03:15 Phys Exam - Physical Examination Constitutional: NAD HEENT: moist MMs, sclera anicteric Neck: supple inspirratory/expiratory crackles Cardiovascular: RRR, no significant murmur Gastrointestinal: soft, non-tender Musculoskeletal: pulses present +2 pitting edema in feet intubated Deviation from normal: intubated Skin: no rash, normal turgor Dx/Plan (1) GI bleed Code(s): K92.2 - GASTROINTESTINAL HEMORRHAGE, UNSPECIFIED Status: Acute (2) Pneumonia Code(s): J18.9 - PNEUMONIA, UNSPECIFIED ORGANISM Status: Acute (3) Sepsis Code(s): A41.9 - SEPSIS, UNSPECIFIED ORGANISM Status: Acute (4) Urinary tract infection Status: Acute (5) GARCÍA (acute kidney injury) Code(s): N17.9 - ACUTE KIDNEY FAILURE, UNSPECIFIED Status: Acute (6) Acute pulmonary embolism Code(s): I26.99 - OTHER PULMONARY EMBOLISM WITHOUT ACUTE COR PULMONALE Status : Acute (7) Acute respiratory failure with hypoxia Code(s): J96.01 - ACUTE RESPIRATORY FAILURE WITH HYPOXIA Status: Acute (8) COPD (chronic obstructive pulmonary disease) Status: Acute (9) Dementia Code(s): F03.90 - UNSPECIFIED DEMENTIA WITHOUT BEHAVIORAL DISTURBANCE Status: Chronic - Plan Plan: Pt is an 83 yo male here for acute respiratory failure, hypoxia requiring intubation 2/2 PE, pneumonia. Fluid overload A- likely 2/2 2u PRBC. diuresing well P- lasix QAM -IVF are KVO per pulm Acute hypoxia, Respiratory Failure 2/2 pneumonia, PE A- pt intubated in the emergency department, central line placed. pt on spontaneous breathing trial now P- treat underlying causes Septic shock 2/2 Pneumonia A- per CT bilateral infiltrate, considering hospitalization approximately 1 month ago pt is on cefepime and vanc. BCx [id number] P- cefepime, vanc -wean vent as tolerated Pulmonary Embolism A- seen per CT, - unable to initiate therapy as pt in anemic with UGIB, NG tube removed 300 mls blood since admission. H/H improving over last few days. P- Will likely start anticoagulation today Urinary Tract Infection -ABX per plan above Hematuria A- resolving. 2/2 UTI. Blood appeared to be in watson catheter bag. h/h improving P- ABX per plans above, f/u UCx. GI Bleed A- 300 mls total removed on admission. GI consulted, Dr. Cherry; recommended serial H/H's, did not want to scope at this time as DIC possible reason for bleeding; appreciate recommendations. do not suspect DIC as cause at this point. P- will monitor NG output -f/u GI recs Gross bleeding at multiple sites A- seems to be improving. DIC labs unimpressive with normal fibrinogen. s/p transfuse 2u PRBC P- monitor for further bleeding AMS A- CT Head negative for acute abnormalities. GCS E4V(NT)M6 P- monitor for resolution once extubated and resolution of infections. COPD A- unsure of home medications P- will reconcile once pt is extubated BPH, HLD, GERD, Schizophrenia -restart home meds once extubated Fluids: KVO Diet: NPO VTE: none Code: Full Addendum - Attending - Attending Attestation Date/Time: 11/06/19 [id number] I personally evaluated the patient and discussed the management with the team. I agree with the History, Examination, Assessment and Plan documented above with any addition or exceptions noted below.
--- NOTE | 2019-11-06 09:25 | PRG ---
DATE OF SERVICE: 11/06/2019 SUBJECTIVE: An 83-year-old gentleman who is intubated, in respiratory failure, diagnosis of bilateral pulmonary emboli, hospital-acquired pneumonia, dementia. There are no family members present at the bedside. we will try and discuss with his family long-term prognosis and his code status. It appears that previous history of pulmonary emboli from my previous note several years ago. OBJECTIVE: VITAL SIGNS: This morning, his pulse is 92, blood pressure 117/76, . GENERAL: He is awake, responsive, but clearly encephalopathic. CHEST: No wheezing or crackles. CARDIAC: Normal S1, S2. No gallops. ABDOMEN: Soft without masses. IMPRESSION: 1. History of gastrointestinal bleed, anemia. 2. Bilateral pulmonary emboli. 3. Chronic obstructive pulmonary disease, previous dysphagia, previous benign prostatic hypertrophy, history of bipolar disorder. PLAN: If you going to withhold his anticoagulation, he may require filter. Continue antibiotics, supportive care. Minimize sedation. Discuss with family as they arrive. If his cultures are negative, I may consider decreasing his vancomycin. One-half hour of critical time. Job ID: [id number]
[2019-11-06] MEDS: Pantoprazole 40 MG VIAL IVP SCH ×2 (09:49→20:03)
--- NOTE | 2019-11-06 14:31 | PRG ---
DATE OF SERVICE: 11/06/2019 SUBJECTIVE: Mr. Flaherty remains intubated, but awake and can follow commands, not complaining of any abdominal discomfort. He has been hemodynamically stable. Hemoglobin has been stable the past couple of days. There has been no report of any further overt bleeding. Tube feeds are going in and tolerated well. OBJECTIVE: VITAL SIGNS: Temperature 99.1, pulse 92, blood pressure 108/66, and 100% oxygen saturation on vent. GENERAL: Critically ill, comfortable, awake, on ventilator. HEART: Regular rate and rhythm. LUNGS: Bibasilar crackles. ABDOMEN: Bowel sounds present. Soft and nontender to palpation. EXTREMITIES: No peripheral edema. LABORATORY STUDIES: Hemoglobin 10.1, WBC 14.4, and platelets 526 from yesterday. INR was 1.3. D-dimer 12.32. Fibrinogen 410. Sodium 137, potassium 3.5, BUN 16, and creatinine 1.12. LFTs all normal. Albumin 3.0. ASSESSMENT AND PLAN: 1. Hematemesis, single episode on presentation, no recurrence over the past couple of days. 2. Anemia, chronic, stable over the past few days. 3. Pneumonia, being treated. 4. Pulmonary emboli, diagnosed on presentation. 5. Chronic dysphagia, with essentially negative EGD recently on 08/30/2019. The patient has stable hemoglobin and no further evidence of overt gastrointestinal bleeding. I would recommend against any upper endoscopic investigation at this time, particularly given he had an essentially normal EGD just a couple of months ago. I think it would be reasonable to go ahead with anticoagulation for his pulmonary emboli, with continued close monitoring. GI will sign off for now, but please call back anytime with questions or concerns. Job ID: [id number]
--- NOTE | 2019-11-06 15:20 | PRG ---
DATE OF SERVICE: 11/05/2019 REASON FOR CONSULTATION: Hematemesis, anemia. SUBJECTIVE: Overnight, the patient did have some bloody output from the OG tube, but during the course of the shift today he has not had any further episodes of hematemesis/blood from the OG tube. There has been no further bleeding noted within the [place] catheter bulb as well with stabilization of his H and H. Otherwise, his clinical status has remained fairly unchanged and has been doing well on the ventilator. Attempts to wean sedation on him today were going to be trialed with evaluation by Pulmonary Service for continuation of therapy. Otherwise, per nursing staff, the patient has not exhibited any hematochezia, melena, increased discomfort or fever. OBJECTIVE: VITAL SIGNS: Temperature 99.7, pulse 95, blood pressure 117/76, respiratory rate 15 saturating 99% on room air. GENERAL: The patient is lying in bed, in no acute distress, on mechanical ventilation, intubated, but sedation medications were being weaned. CARDIOVASCULAR: Tachycardic rate, but regular rhythm. RESPIRATORY: Coarse breath sounds auscultated in all lung ibarra with only mild wheezing in the right lower lobe. ABDOMEN: Normoactive bowel sounds, soft, nondistended. No grimacing to palpation. EXTREMITIES: Nonpitting in the bilateral feet was seen. Otherwise, no cyanosis or clubbing. LABORATORY DATA: CBC with a white blood cell count of 13.9, hemoglobin 9.2, hematocrit 27.7, platelets 431. Chemistry with a sodium of 135, potassium 4, chloride 103, CO2 of 26, BUN 16, creatinine 0.94, glucose 82, AST 22, ALT 19, alkaline phosphatase 64, total bilirubin 0.6. IMAGING DATA: No current GI imaging is available for review. ASSESSMENT AND PLAN: 1. The patient is an 83-year-old male with past medical history of chronic obstructive pulmonary disease, benign prostatic hypertrophy, hyperlipidemia, gastroesophageal reflux disease, schizophrenia, and recurrent urinary tract infections, presenting with pulmonary emboli, consolidation of the bilateral lower lobes concerning for pneumonia with subsequent disseminated intravascular coagulation/coagulopathy and hematemesis most likely secondary to his coagulopathy. 2. Hematemesis. The patient initially presented with acute hypoxic respiratory failure in light of an active consolidation pneumonia with decreased fibrinogen degradation products consistent with a diagnosis of disseminated intravascular coagulation. With treatment of the existing pneumonia, his hemoglobin and hematocrit has stabilized with minimal amounts of blood now seen coming from the orogastric tube indicating response to treatment. However, with the concurrent diagnosis of bilateral pulmonary emboli, the patient will ultimately need to be on anticoagulation here in the near future and will probably need upper endoscopy within the next 24 to 48 hours. RECOMMENDATIONS: 1. Would continue to trend the patient's H and H and transfuse as necessary to maintain an H and H of 7/21. 2. Continue to monitor clinically for signs of active GI bleeding. 3. We would treat the underlying source of DIC with pneumonia being the most likely etiology at this time. 4. We will continue to hold anticoagulation in light of DIC and bleeding from any mucosal surface. 5. Continue pantoprazole 40 mg IV b.i.d. 6. With the likelihood of DIC contributing to bleeding from the gastric mucosal surfaces, upper endoscopy is not necessarily indicated at this time due to inability to intervene upon the coagulopathy via endoscopic means. However, if the patient continues to have hematemesis or decrease in his H and H, endoscopic management would be indicated at that time. We will continue to follow. Please call with any questions. Job ID: [id number]
[2019-11-06 16:08] LABS: Hematocrit 22.8 % (37.5-51.0); RBC Folate Test Component 1399 ng/mL (>498)
[2019-11-06] MEDS: Morphine 2 MG/ML SYRINGE SLOW IVP PRN (16:36)
[2019-11-06] MEDS: Enoxaparin Sodium 80 MG/0.8 ML SYRINGE SC SCH (20:02)
[2019-11-06] MEDS ORDERED: Vancomycin HCl 1.25 GM in Sodium Chloride 0.9% 250 ML 250 ML IVPB SCH (22:00)
[2019-11-07] MEDS: Cefepime 2 GM in Sodium Chloride 0.9% 100 ML IVPB SCH ×2 (02:25→15:02)
[2019-11-07] MEDS: Morphine 2 MG/ML SYRINGE SLOW IVP PRN (03:07)
[2019-11-07 04:36] LABS: #Eosinphils 0.5 thou/uL (0.0-0.7); #Lymphocytes 1.2 thou/uL (1.20-3.40); #Monocytes 0.9 thou/uL (0.11-0.59); #Neutrophils 7.4 thou/uL (1.40-6.50); %Basophils 0.1 % (0.0-1.0); %Eosinophils 5.4 % (0.0-10.0); %Lymphocytes 12.3 % (21.0-51.0); %Neutrophils 73.3 % (42.0-75.0); Hemoglobin 9.9 g/dL (14.0-18.0); Mean Corpuscular HGB CONC 33.6 g/dL (32.0-36.0); Mean Corpuscular Hemoglobin 31.1 pg (27.0-31.0); Mean Corpuscular Volume 92.5 fL (78.0-98.0); Mean Platelet Volume 6.4 fL (7.4-10.4); Platelet Count 503 thou/uL (130-400); RBC Distribution Width 12.8 % (11.5-14.5); Red Blood Cell (RBC) Count 3.17 mill/uL (4.70-6.10); White Blood Cell (WBC) Count 10.1 thou/uL (4.8-10.8)
[2019-11-07 05:11] LABS: ALT (SGPT) 17 U/L (8-55); AST (SGOT) 20 U/L (5-34); Albumin 2.8 g/dL (3.4-4.8); Alkaline Phosphatase 73 U/L (40-110); Anion Gap 11 mmol/L (10-20); BUN (Urea Nitrogen) 14 mg/dL (8.4-25.7); Bilirubin, Total 0.4 mg/dL (0.2-1.2); Calc. Creatinine Clearance 59 mL/min (70-130); Calcium 8.6 mg/dL (7.8-10.44); Carbon Dioxide 31 mmol/L (23-31); Chloride 100 mmol/L (98-107); Estimated GFR-MDRD Greater than 90; Globulin 3.1 g/dL (2.4-3.5); Glucose 118 mg/dL (83-110); Potassium 3.6 mmol/L (3.5-5.1); Protein, Total 5.9 g/dL (5.8-8.1); Sodium 138 mmol/L (136-145)
[2019-11-07] MEDS: Furosemide 40 MG/4 ML VIAL SLOW IVP SCH (05:31)
[2019-11-07 06:28] LABS: Phosphorus 2.1 mg/dL (2.3-4.7)
[2019-11-07] MEDS: Enoxaparin Sodium 80 MG/0.8 ML SYRINGE SC SCH ×2 (07:57→19:31)
[2019-11-07] MEDS: Pantoprazole 40 MG VIAL IVP SCH ×2 (07:58→19:32)
--- NOTE | 2019-11-07 08:22 | PDOC.FM ---
- Subjective Subjective: Pt resting comfortably, he is not sedated but still intubated, follows commands. He had to go back on vent last night per nursing for 4 hours but is back on spontaneous breathing trial now. - Objective Vital Signs & Weight: Vital Signs (12 hours) Temp Pulse Resp BP 11/07/19 07:24 99 124/69 11/07/19 06:00 13 11/07/19 04:00 98.7 F 16 11/07/19 03:46 89 127/85 11/07/19 02:00 17 11/07/19 00:00 99.1 F 14 11/06/19 23:00 90 123/70 11/06/19 22:00 17 Weight Admit Weight 70.76 kg Weight 69.8 kg Most Recent Monitor Data Heart Rate from ECG 94 NIBP 125/76 NIBP BP-Mean 92 Respiration from ECG 19 SpO2 100 I&O: 11/06/19 11/07/19 11/08/19 06:59 06:59 06:59 Intake Total 1517 1674 Output Total 2886 5980 Balance -1368 -396 Result Diagrams: 11/07/19 03:55 11/07/19 03:55 Phys Exam - Physical Examination Constitutional: NAD HEENT: moist MMs, sclera anicteric Neck: no JVD, supple bilat expiratory rales Cardiovascular: RRR, no significant murmur Gastrointestinal: soft, non-tender, no distention +1 pitting edema in feet Neurological: moves all 4 limbs Psychiatric: normal affect Skin: no rash, normal turgor Dx/Plan (1) GI bleed Code(s): K92.2 - GASTROINTESTINAL HEMORRHAGE, UNSPECIFIED Status: Acute (2) Pneumonia Code(s): J18.9 - PNEUMONIA, UNSPECIFIED ORGANISM Status: Acute (3) Sepsis Code(s): A41.9 - SEPSIS, UNSPECIFIED ORGANISM Status: Acute (4) Urinary tract infection Status: Acute (5) GARCÍA (acute kidney injury) Code(s): N17.9 - ACUTE KIDNEY FAILURE, UNSPECIFIED Status: Acute (6) Acute pulmonary embolism Code(s): I26.99 - OTHER PULMONARY EMBOLISM WITHOUT ACUTE COR PULMONALE Status : Acute (7) Acute respiratory failure with hypoxia Code(s): J96.01 - ACUTE RESPIRATORY FAILURE WITH HYPOXIA Status: Acute (8) COPD (chronic obstructive pulmonary disease) Status: Acute (9) Dementia Code(s): F03.90 - UNSPECIFIED DEMENTIA WITHOUT BEHAVIORAL DISTURBANCE Status: Chronic - Plan Plan: Pt is an 83 yo male here for acute respiratory failure, hypoxia requiring intubation 2/2 PE, pneumonia. Fluid overload A- improving, edema has decreased. It is likely 2/2 2u PRBC. he is diuresing well P- lasix QAM -IVF are KVO per pulm Acute hypoxia, Respiratory Failure 2/2 pneumonia, PE A- pt intubated in the emergency department, central line placed. pt on spontaneous breathing trial now P- treat underlying causes -extubation per pulm Septic shock 2/2 Pneumonia A- per CT bilateral infiltrate, considering hospitalization approximately 1 month ago pt is on cefepime and vanc. BCx [id number] P- cefepime, vanc -wean vent as tolerated -Will likely DC ABX on 11/08 so he received 5 full days Pulmonary Embolism A- seen per CT, therapeutic lovenox initiated yesterday, no bleeding since initiation P- continue th lovenox, will likely switch to DOAC soon Urinary Tract Infection -ABX per plan above Hematuria A- resolved, likely 2/2 UTI P- ABX per plans above, f/u UCx. hematemesis, single episode A- 300 mls total removed on admission. GI consulted, recommended no scope at this time and has signed off. Recs much appreciated P- monitor for further symptoms Gross bleeding at multiple sites A- seems to be improving. DIC labs unimpressive with normal fibrinogen. s/p transfuse 2u PRBC P- monitor for further bleeding AMS A- CT Head negative for acute abnormalities. GCS E4V(NT)M6 P- monitor for resolution once extubated and resolution of infections. COPD A- unsure of home medications P- will reconcile once pt is extubated BPH, HLD, GERD, Schizophrenia -restart home meds once extubated Fluids: KVO Diet: NPO VTE: none Code: Full Addendum - Attending - Attending Attestation Date/Time: 11/07/19 8971 I personally evaluated the patient and discussed the management with Dr. Lewis. I agree with the History, Examination, Assessment and Plan documented above with any addition or exceptions noted below. Demented and largely nonverbal today. No resp distress. Xfer to med floor. Continue antibiotics, continue qAM lasix. On lovenox in setting of DVT filter that, if it has been removed, has not been documented here to my knowledge.
--- NOTE | 2019-11-07 09:18 | PRG ---
DATE OF SERVICE: 11/07/2019 SUBJECTIVE: This morning, he is on vent encephalopathy. OBJECTIVE: VITAL SIGNS: His sats 100%, blood pressure 124/69, respirations 20, afebrile, pulse 100. CHEST: Decreased breath sounds. No wheezing. CARDIAC: Normal S1, S2. No gallop. ABDOMEN: No masses. ASSESSMENT: 1. Respiratory failure. 2. Chronic obstructive pulmonary disease. 3. Encephalopathy. 4. Schizophrenia. 5. Benign prostatic hypertrophy. 6. Seizure disorder. 7. Dementia. 8. PEG in place. PLAN: He was started on Lovenox yesterday ,_ Otherwise, if he is stable with no evidence of bleeding, we can switch him over to low-dose Eliquis. extubate today Await family input. We will probably consider weaning and extubation today. One-half hour of critical time. Job ID: [id number] MTDD
[2019-11-07] MEDS ORDERED: DC Sedation Protocol FS ONE (09:39)
--- NOTE | 2019-11-07 10:15 | RAD ---
PORTABLE CHEST 1 VIEW: Date: 11/07/2019 Time: 0942 hours HISTORY: Respiratory distress. FINDINGS/IMPRESSION: Comparison made with exam of 11/03/2019. There has been interval removal of the endotracheal and nasogastric tubes. Right-sided internal jugul ar central line remains in place. The heart size is stable. There are patchy infiltrates in the right upper, right lower, and left lower lung zones. No pneumothoraces or large effusions are seen. POS: OFF
[2019-11-07 15:29] VITALS: BMI 24.8
[2019-11-07] MEDS: Budesonide 0.5 MG/2 ML NEB NEB SCH (19:18)
[2019-11-07] MEDS: Metoprolol Tartrate 25 MG TAB PER TUBE SCH (19:31)
[2019-11-07] MEDS: levETIRAcetam 500 MG TAB PER TUBE SCH (19:31)
[2019-11-07] MEDS ORDERED: Atorvastatin Calcium 10 MG TAB PER TUBE SCH (21:00)
[2019-11-08] MEDS: Cefepime 2 GM in Sodium Chloride 0.9% 100 ML IVPB SCH (01:11)
[2019-11-08 05:37] LABS: #Eosinphils 0.6 thou/uL (0.0-0.7); #Lymphocytes 1.4 thou/uL (1.20-3.40); #Monocytes 0.8 thou/uL (0.11-0.59); #Neutrophils 7.3 thou/uL (1.40-6.50); %Basophils 0.3 % (0.0-1.0); %Eosinophils 5.9 % (0.0-10.0); %Monocytes 8.1 % (0.0-10.0); %Neutrophils 71.7 % (42.0-75.0); Hemoglobin 9.8 g/dL (14.0-18.0); Mean Corpuscular HGB CONC 32.8 g/dL (32.0-36.0); Mean Corpuscular Hemoglobin 30.8 pg (27.0-31.0); Mean Corpuscular Volume 93.9 fL (78.0-98.0); Mean Platelet Volume 6.3 fL (7.4-10.4); Platelet Count 516 thou/uL (130-400); RBC Distribution Width 12.8 % (11.5-14.5); Red Blood Cell (RBC) Count 3.18 mill/uL (4.70-6.10); White Blood Cell (WBC) Count 10.2 thou/uL (4.8-10.8)
[2019-11-08 05:56] LABS: Phosphorus 2.2 mg/dL (2.3-4.7)
[2019-11-08 06:01] LABS: ALT (SGPT) 16 U/L (8-55); AST (SGOT) 16 U/L (5-34); Albumin 2.8 g/dL (3.4-4.8); Alkaline Phosphatase 74 U/L (40-110); Anion Gap 9 mmol/L (10-20); BUN (Urea Nitrogen) 14 mg/dL (8.4-25.7); Bilirubin, Total 0.2 mg/dL (0.2-1.2); Calc. Creatinine Clearance 58 mL/min (70-130); Calcium 8.7 mg/dL (7.8-10.44); Carbon Dioxide 33 mmol/L (23-31); Chloride 101 mmol/L (98-107); Estimated GFR-MDRD 89; Globulin 2.7 g/dL (2.4-3.5); Glucose 131 mg/dL (83-110); Potassium 3.9 mmol/L (3.5-5.1); Protein, Total 5.5 g/dL (5.8-8.1); Sodium 139 mmol/L (136-145)
[2019-11-08] MEDS: Budesonide 0.5 MG/2 ML NEB NEB SCH (07:32)
[2019-11-08] MEDS: Metoprolol Tartrate 25 MG TAB PER TUBE SCH (08:32)
[2019-11-08] MEDS: levETIRAcetam 500 MG TAB PER TUBE SCH (08:32)
[2019-11-08] MEDS: Pantoprazole 40 MG VIAL IVP SCH (08:33)
[2019-11-08] MEDS: Enoxaparin Sodium 80 MG/0.8 ML SYRINGE SC SCH (08:33)
--- NOTE | 2019-11-08 08:55 | PDOC.FM ---
- Subjective Subjective: Pt resting comfortably, he denies any complaints, denies sob/cp. He is verbal and oriented to person only - Objective Vital Signs & Weight: Vital Signs (12 hours) Temp Pulse Resp BP Pulse Ox 11/08/19 07:32 86 22 H 96 11/08/19 07:30 86 22 H 96 11/08/19 07:16 98.9 F 87 24 H 128/78 98 11/08/19 04:00 99.6 F 86 20 121/70 96 11/08/19 00:13 83 20 95 Weight Admit Weight 70.76 kg Weight 69.9 kg Most Recent Monitor Data Heart Rate from ECG 79 NIBP 106/62 NIBP BP-Mean 76 Respiration from ECG 44 SpO2 99 I&O: 11/07/19 11/08/19 11/09/19 06:59 06:59 06:59 Intake Total 4 1206 Output Total 2069 2049 Balance -396 -844 Result Diagrams: 11/08/19 05:00 11/08/19 05:00 Phys Exam - Physical Examination Constitutional: NAD HEENT: moist MMs, sclera anicteric Neck: supple, full ROM Respiratory: no wheezing mild bilateral expiratory rhonchi Cardiovascular: RRR, no significant murmur Gastrointestinal: non-tender, no distention Musculoskeletal: no edema, pulses present Neurological: normal sensation, moves all 4 limbs Psychiatric: normal affect Skin: normal turgor Dx/Plan (1) GI bleed Code(s): K92.2 - GASTROINTESTINAL HEMORRHAGE, UNSPECIFIED Status: Acute (2) Pneumonia Code(s): J18.9 - PNEUMONIA, UNSPECIFIED ORGANISM Status: Acute (3) Sepsis Code(s): A41.9 - SEPSIS, UNSPECIFIED ORGANISM Status: Acute (4) Urinary tract infection Status: Acute (5) GARCÍA (acute kidney injury) Code(s): N17.9 - ACUTE KIDNEY FAILURE, UNSPECIFIED Status: Acute (6) Acute pulmonary embolism Code(s): I26.99 - OTHER PULMONARY EMBOLISM WITHOUT ACUTE COR PULMONALE Status : Acute (7) Acute respiratory failure with hypoxia Code(s): J96.01 - ACUTE RESPIRATORY FAILURE WITH HYPOXIA Status: Acute (8) COPD (chronic obstructive pulmonary disease) Status: Acute (9) Dementia Code(s): F03.90 - UNSPECIFIED DEMENTIA WITHOUT BEHAVIORAL DISTURBANCE Status: Chronic - Plan Plan: Pt is an 83 yo male here for acute respiratory failure, hypoxia requiring intubation 2/2 PE, pneumonia. Fluid overload A- improved, pt appears to be euvolemic P- will DC lasix Acute hypoxia, Respiratory Failure 2/2 pneumonia, PE -resolved Septic shock 2/2 Pneumonia A- per CT bilateral infiltrate, considering hospitalization approximately 1 month ago pt was on cefepime and vanc. Vanc stopped yesterday BCx [id number] P- cefepime today, will DC today Pulmonary Embolism A- seen per CT, therapeutic lovenox initiated yesterday, no bleeding since initiation P- continue th lovenox, will likely switch to DOAC today Urinary Tract Infection -ABX per plan above Hematuria A- resolved, likely 2/2 UTI P- ABX per plans above, f/u UCx. hematemesis, single episode A- 300 mls total removed on admission. GI consulted, recommended no scope at this time and has signed off. Recs much appreciated P- monitor for further symptoms Gross bleeding at multiple sites A- seems to be improving. DIC labs unimpressive with normal fibrinogen. s/p transfuse 2u PRBC P- monitor for further bleeding AMS -resolved COPD -home meds BPH, HLD, GERD, Schizophrenia -home meds Fluids: KVO Code: Full Addendum - Attending - Attending Attestation Date/Time: 11/08/19 4234 I personally evaluated the patient and discussed the management with the team. I agree with the History, Examination, Assessment and Plan documented above with any addition or exceptions noted below.
--- NOTE | 2019-11-08 09:23 | PRG ---
DATE OF SERVICE: 11/08/2019 SUBJECTIVE: This morning, the patient is in no distress. LABORATORY DATA: BNP is only 131. Glucose is 129. White count 10,000. Lytes are normal. OBJECTIVE: VITAL SIGNS: Saturations are 98% on 3 L, respiratory rate 22, temperature is 98, blood pressure 128/78. CHEST: Decreased breath sounds. No wheezing. CARDIAC: Normal S1 and S2. No gallops. ABDOMEN: Soft. No masses. IMPRESSION: 1. Respiratory failure. 2. Recurrent aspiration. 3. Percutaneous endoscopic gastrostomy in place. 4. History of pulmonary emboli, recurrent. PLAN: I am going to switch the patient over to low-dose Eliquis. Eventually placement in a [facility]. All cultures are negative. I would deescalate antibiotics. Job ID: [id number]
[2019-11-08] MEDS ORDERED: Cefdinir 300 MG CAP PO SCH ×2 (10:00→21:00)
[2019-11-08 11:51] VITALS: BP 129/87; TEMP 98
--- NOTE | 2019-11-09 15:24 | DIS ---
DATE OF ADMISSION: 11/03/2019 DATE OF DISCHARGE: 11/08/2019 RESIDENT: Kyle Lewis MD ADMITTING ATTENDING: Babak Apple MD DISCHARGE ATTENDING: Babak Apple MD CONSULTS: 1. Pulmonology, Dr. Avendaño. 2. GI, Dr. Cherry. 3. Palliative Care. PROCEDURES: 1. On 11/03/2019, right intrajugular central venous catheter. 2. On 11/03/2019, brain CT. Impression, no acute intracranial abnormalities, chronic white matter change, and left cerebellar infarct. 3. On 11/03/2019, chest thorax CTA; impression, patchy bilateral interstitial infiltrates with more confluent area of consolidation in the left lower lobe. There is evidence for pulmonary embolus with fairly minimal changes seen. The largest embolus is at the beginning, branching in the segmental branch in the right upper lobe and there is probably some small segmental emboli within the right lower lobe in the lingular region. Endotracheal tube, the tip of which is at the right mainstem bronchus could be retracted slightly for better placement. 4. On 11/03/2019, chest x-ray; impression, right-sided central line placement. No sign of pneumothorax. 5. On 11/07/2019, chest x-ray; impression, there has been interval removal of the endotracheal and nasogastric tubes. Right-sided IJ central line remains in place. The heart size is stable. There are patchy infiltrates in the right upper, right lower, and left lower lung zones. No pneumothoraces or large effusions are seen. DISCHARGE MEDICATIONS: Include, 1. Eliquis 2.5 mg p.o. b.i.d. 2. Multivitamin. 3. Tamsulosin 0.4 mg per tube at bedtime. 4. Atorvastatin 10 mg per tube at bedtime. 5. Tylenol. 6. DuoNeb q.4 hours p.r.n. 7. Zofran 4 mg per tube p.r.n. q.6 hours. 8. Pulmicort 0.5 mg inhaled q.12 hours p.r.n. 9. Caladryl lotion. 10. Keppra 500 mg per tube b.i.d. 11. Potassium chloride 20 mEq per tube daily. 12. Protonix 40 mg subcu daily. 13. Nitroglycerin 0.4 mg q.5 minutes p.r.n. 14. Metoprolol 25 mg per tube b.i.d. 15. Proscar 5 mg per tube daily. 16. Aspirin 81 mg per tube daily. DISCONTINUED MEDICATIONS: None. PRIMARY DIAGNOSIS: Acute hypoxic respiratory failure secondary to pulmonary embolism and pneumonia. SECONDARY DIAGNOSES: Septic shock secondary to pneumonia and urinary tract infection; hematuria; hematemesis, single episode; altered mental status; chronic obstructive pulmonary disease; BPH; hypersensitivity lung disease; gastroesophageal reflux disease; and schizophrenia. HISTORY OF PRESENT ILLNESS/HOSPITAL COURSE: This is an 83-year-old gentleman, who presented from the custodial with altered mental status. He was found to be hypoxic and has hypoxic respiratory failure. CT chest was done, which showed pneumonia as well as pulmonary embolism. Additionally, shortly after admission, the patient had a single episode of hematemesis and 300 mL of blood was pulled from his stomach. He also had blood in his urine per [place] catheter. It was thought that the patient possibly had DIC, however, labs were for the most part unimpressive. The patient was intubated. Central line was placed. The patient was put on antibiotics and sedated until his respiratory status improved, after which he was extubated. Five days of antibiotics were given as it was thought most of his respiratory issues were secondary to pulmonary embolism. The patient was placed on therapeutic Lovenox for a few days and then transitioned to p.o. Eliquis on discharge. Mental status improved over the course of admission. Regarding the patient's code status, multiple family members were called, all of which regarded the patient's sister, Keira Membreno to be the decision maker in the place of the patient as he had poor cognition and was only oriented to person and it was felt that this was his baseline. Ms. Membreno reported having conversations with him in the past and that he would desire to be full code and would not desire to have hospice at this time. DISPOSITION: Stable. DISCHARGE INSTRUCTIONS: Location: [facility]. Activity: Bed rest. Followup: Follow up with Dr. Ospina in 3 to 7 days. Diet: Per feeding tube. The patient has gastric tube. Job ID: [id number]
== END 2019-11-08 17:15 | DRG 208 ==
LOC: ERS 15:51 → CCU 17:50 → T4-A 11-07 20:23
PROVIDERS: ADMIT Emergency Medicine; ATTEND Emergency Medicine
PROC: 30233N1 Transfusion of Nonautologous Red Blood Cells into Peripheral Vein, Percutaneous Approach (ICD-10-PCS; principal; 2019-11-03)
PROC: 05HM33Z Insertion of Infusion Device into Right Internal Jugular Vein, Percutaneous Approach (ICD-10-PCS; 2019-11-03)
PROC: B543ZZA Ultrasonography of Right Jugular Veins, Guidance (ICD-10-PCS; 2019-11-03)
PROC: 5A1945Z Respiratory Ventilation, 24-96 Consecutive Hours (ICD-10-PCS; 2019-11-03)
PROC: 0BH17EZ Insertion of Endotracheal Airway into Trachea, Via Natural or Artificial Opening (ICD-10-PCS; 2019-11-03)
DX: J96.01 Acute respiratory failure with hypoxia (principal); A41.9 Sepsis, unspecified organism; J18.9 Pneumonia, unspecified organism; I26.99 Other pulmonary embolism without acute cor pulmonale; R65.21 Severe sepsis with septic shock; D65 Disseminated intravascular coagulation [defibrination syndrome]; K92.2 Gastrointestinal hemorrhage, unspecified; J44.1 Chronic obstructive pulmonary disease with (acute) exacerbation; N17.9 Acute kidney failure, unspecified; G93.40 Encephalopathy, unspecified; G93.49 Other encephalopathy; Z79.82 Long term (current) use of aspirin; Z79.899 Other long term (current) drug therapy; N40.0 Benign prostatic hyperplasia without lower urinary tract symptoms; E78.5 Hyperlipidemia, unspecified; K21.9 Gastro-esophageal reflux disease without esophagitis; F20.9 Schizophrenia, unspecified; F03.90 Unspecified dementia, unspecified severity, without behavioral disturbance, psychotic disturbance, mood disturbance, and anxiety; G40.909 Epilepsy, unspecified, not intractable, without status epilepticus
CPT/HCPCS: 36415; 36416; 36430; 70450; 71045; 71275; 74018; 80053; 80202; 81003; 81015; 82271; 82607; 82728; 82747; 82805; 83540; 83550; 83605; 83735; 83880; 84100; 84145; 85025; 85362; 85379; 85384; 85610; 85730; 86140; 86850; 86900; 86901; 87040; 87086; 93005; 94002; 94003; 94640; 94660; 94760; C9113; J0692; J1650; J1940; J2185; J2250; J2270; J2704; J3010; J3370; J3475; J3490; J7050; J7620; J7626; P9016

== ENCOUNTER 2019-12-25 22:12 | Inpatient (IN) | payer MEDICARE, MEDICAID ==
[2019-12-25 22:54] LABS: #Basophils 0.1 thou/uL (0.0-0.2); #Eosinphils 0.2 thou/uL (0.0-0.7); #Lymphocytes 1.2 thou/uL (1.20-3.40); #Monocytes 0.8 thou/uL (0.11-0.59); #Neutrophils 8.6 thou/uL (1.40-6.50); %Basophils 0.5 % (0.0-1.0); %Lymphocytes 11.4 % (21.0-51.0); %Monocytes 6.9 % (0.0-10.0); %Neutrophils 79.2 % (42.0-75.0); Hemoglobin 9.2 g/dL (14.0-18.0); Mean Corpuscular HGB CONC 32.3 g/dL (32.0-36.0); Mean Corpuscular Hemoglobin 30.3 pg (27.0-31.0); Mean Corpuscular Volume 93.6 fL (78.0-98.0); Mean Platelet Volume 6.1 fL (7.4-10.4); Platelet Count 684 thou/uL (130-400); RBC Distribution Width 13.8 % (11.5-14.5); Red Blood Cell (RBC) Count 3.05 mill/uL (4.70-6.10); White Blood Cell (WBC) Count 10.9 thou/uL (4.8-10.8)
[2019-12-25] MEDS ORDERED: cefTRIAXone\\ROCEPHIN 2 GM VIAL ONE (22:55)
[2019-12-25 23:02] LABS: INR-International Normal Ratio 1.2; PTT 33.7 SEC (22.9-36.1); Prothrombin Time 15.4 SEC (12.0-14.7)
[2019-12-25 23:18] LABS: ALT (SGPT) 28 U/L (8-55); AST (SGOT) 27 U/L (5-34); Albumin 2.8 g/dL (3.4-4.8); Alkaline Phosphatase 87 U/L (40-110); Anion Gap 13 mmol/L (10-20); BUN (Urea Nitrogen) 20 mg/dL (8.4-25.7); Bilirubin, Total 0.3 mg/dL (0.2-1.2); Calc. Creatinine Clearance 0 mL/min (70-130); Calcium 9.6 mg/dL (7.8-10.44); Carbon Dioxide 30 mmol/L (23-31); Chloride 96 mmol/L (98-107); Estimated GFR-MDRD Greater than 90; Glucose 109 mg/dL (83-110); Potassium 4.7 mmol/L (3.5-5.1); Protein, Total 6.8 g/dL (5.8-8.1); Sodium 134 mmol/L (136-145)
--- NOTE | 2019-12-25 23:19 | RAD ---
KUB: 12/25/2019 COMPARISON: 11/03/2019 HISTORY: PEG tube check FINDINGS: Contrast media is seen within the stomach and the patient's gastrostomy tube confirming an intraluminal location. IVC filter present. IMPRESSION: Injected contrast media is seen within the stomach.
--- NOTE | 2019-12-25 23:21 | RAD ---
Portable frontal chest radiograph: 12/25/2019 COMPARISON: 11/07/2019 HISTORY: History of aspiration FINDINGS: Mild increased linear density noted in the left lung base, improved when compared to prior imaging. Previously noted right upper lobe density has resolved. No pneumothorax, lobar consolidation, or alveolar edema. IMPRESSION: Mild increased density in the left lung base, improved when compared to the prior exam. N o new findings. No focal consolidation or alveolar edema.
[2019-12-25] MEDS ORDERED: metroNIDAZOLE 500 MG/100 ML BAG ONE (23:36)
[2019-12-25 23:49] LABS: Bilirubin Negative (Negative); Blood, Urine Negative (Negative); Clarity Clear (Clear); Glucose, Urine (Dipstick) Normal (Negative); Leukocyte Negative Leu/uL (Negative); Nitrite Negative (Negative); Protein, Urine (Dipstick) 10 mg/dL (Neg-Trace)
[2019-12-25] MEDS ORDERED: Azithromycin 500 MG VIAL ONE (23:58)
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
[2019-12-26] MEDS ORDERED: Acetaminophen 650 MG Suppository PR PRN (01:20)
[2019-12-26] MEDS ORDERED: Senokot S 8.6-50 MG TAB PO PRN (01:20)
[2019-12-26] MEDS ORDERED: Ondansetron PF 4 MG/2 ML Vial IVP PRN (01:20)
[2019-12-26] MEDS: Sodium Chloride 0.9% 1,000 ML IV SCH ×2 (01:30→17:35)
[2019-12-26 05:10] VITALS: BMI 22.8
[2019-12-26] MEDS ORDERED: Ampicillin/Sulbactam 1.5 GM in Sodium Chloride 0.9% 100 ML IVPB SCH (06:00)
[2019-12-26] MEDS: Piperacillin/Tazobactam 3.375 GM in Sodium Chloride 0.9% 100 ML IVPB SCH ×4 (06:40→23:24)
[2019-12-26] MEDS: Enoxaparin Sodium 40 MG/0.4 ML SYRINGE SC SCH (08:59)
--- NOTE | 2019-12-26 10:19 | HP ---
I have discussed the case with Dr. Funmi Potter and agree with her assessment and plan. HISTORY OF PRESENT ILLNESS: Briefly, Mr. Flaherty is an 84-year-old white male, half-way patient, with dementia and PEG tube. He had been having some problems with his PEG tube and had some coughing and congestion that suggested the possibility of aspiration pneumonia. He was brought here for higher level of care. PHYSICAL EXAMINATION: VITAL SIGNS: On exam, his blood pressure is 130/90, pulse rate is 116, respirations initially 36, temperature 99.7, O2 saturation 100% on 2 L. GENERAL: He is basically demented and nonverbal. EARS, NOSE, AND THROAT: No erythema or exudate. NECK: Supple. CARDIAC: Heart rhythm regular, S4 gallop. No murmur or rub. LUNGS: No distress or use of accessory muscles. There is significant coarse sounds secondary to secretions. ABDOMEN: Flat, soft without guarding or rebound. NEUROLOGIC: Unable to adequately assess. LABORATORY DATA: CBC; white count is 10,900, hemoglobin 9.2, hematocrit 28.5 with an MCV of 93.6. Chemistry: Sodium 134, potassium 4.7, chloride 96, bicarb 30, BUN 20, creatinine 0.75 with a GFR greater than 90. Chest x-ray, mild increased density in the left lung base. IMPRESSION: 1. Possible aspiration pneumonia. 2. PEG tube malfunction. 3. Dementia. PLAN: Begin broad-spectrum antibiotics. Consult palliative Care for long-term goals and treatment. Consult GI to assess PEG tube. Job ID: [id number]
[2019-12-27] MEDS: Sodium Chloride 0.9% 1,000 ML IV SCH (03:13)
[2019-12-27] MEDS: Piperacillin/Tazobactam 3.375 GM in Sodium Chloride 0.9% 100 ML IVPB SCH ×2 (05:28→11:26)
--- NOTE | 2019-12-27 08:09 | PDOC.FM ---
- Subjective Subjective: NAEO. Patient resting in bed. No acute distress noted. Patient was seen by Dr. Mccormack (GI) yesterday per nursing and had PEG tube changed. This PEG tube is working well. - Objective MAR Reviewed: Yes Vital Signs & Weight: Vital Signs (12 hours) Temp Pulse Resp BP Pulse Ox 12/27/19 08:00 99.4 F 116 H 20 119/69 100 Weight Admit Weight 66.224 kg Weight 66.224 kg Result Diagrams: 12/27/19 08:19 12/27/19 08:19 Phys Exam - Physical Examination Constitutional: NAD HEENT: moist MMs, sclera anicteric Neck: no nodes Respiratory: clear to auscultation bilateral Cardiovascular: RRR Gastrointestinal: soft, no distention, positive bowel sounds peg tube in place, no drainage noted Musculoskeletal: no edema posturing of R extremity, opens eyes spontaneously, mutters words Skin: no rash, normal turgor, cap refill <2 seconds Dx/Plan (1) COPD (chronic obstructive pulmonary disease) Status: Acute (2) Pneumonia Code(s): J18.9 - PNEUMONIA, UNSPECIFIED ORGANISM Status: Acute (3) Dementia Code(s): F03.90 - UNSPECIFIED DEMENTIA WITHOUT BEHAVIORAL DISTURBANCE Status: Chronic (4) Schizophrenia Code(s): F20.9 - SCHIZOPHRENIA, UNSPECIFIED Status: Chronic Qualifiers: Schizophrenia type: unspecified Qualified Code(s): F20.9 - Schizophrenia, unspecified - Plan Plan: Aspiration Pneumonia, Suspected - Will continue coverage with zosyn while patient is in the hospital. Will transition to augmentin per tube x 7 days BID upon discharge. - Speech therapy recommendations - chronic dysphagia worsened from previous, coughing on secretions, strict NPO status with PEG feeds. Will need to have discussion with family desiring comfort care can consider puree and nectar pleasure feeds w/ aspiration risk. - Will consult palliative care for help with discussions with family regarding end of life care. Peg Tube Dysfunction, resolved - GI consulted, Dr. Mccormack saw patient and changed PEG tube yesterday successfully. Thrombocytosis Plt 683 on presenting. Differential includes reactive thrombosis vs malignant - peripheral smear pending - Will continue to monitor Dementia - Consult Palliative Care for goals of care COPD - aware, no resp distress, will start home meds - PRNs breathing treatments available BPH - home meds HLD - home meds GERD - home meds Schizophrenia - home meds Code: Full PCP: Dr. Ospina Diet: NPO; PEG feeds Disposition: discharge to [place] today Case discussed with Dr. Aggarwal
--- NOTE | 2019-12-27 08:21 | CON ---
DATE OF CONSULTATION: 12/26/2019 REASON FOR CONSULTATION: Malfunction of the PEG tube. HISTORY OF PRESENT ILLNESS: Mr. Flaherty is an 84-year-old man, who was admitted to the hospital with possible aspiration pneumonia. The patient has been receiving [facility] local [facility]. Reportedly, there has been significant leakage of the feeding solution around the gastrostomy site. There is no indication of any abdominal pain. There is no history of nausea, vomiting, or any altered bowel function. PAST MEDICAL HISTORY: Schizophrenia, COPD, hyperlipidemia, GE reflux disease, oropharyngeal dysphagia. SOCIAL HISTORY: The patient lives at [facility]. No known tobacco or alcohol usage. FAMILY HISTORY: Negative for any known GI problem, liver disease, or GI malignancy. REVIEW OF SYSTEMS: Not obtainable in the patient's current condition, no other family present. ALLERGIES: NONE. CURRENT MEDICATIONS: Include; 1. Lovenox. 2. Ondansetron as needed. 3. Piperacillin/tazobactam. PHYSICAL EXAMINATION: VITAL SIGNS: Temperature is 98.5, blood pressure 125/72, pulse is 115. GENERAL: He is alert and noncommunicative. HEENT: Shows anicteric sclerae. Oropharynx is dry. CV: Shows normal S1 and S2. Regular rate and rhythm. CHEST: Shows breath sounds. ABDOMEN: Soft. No distention. No tympany. There is no elicited tenderness. He has active bowel sounds. Inspection around the gastrostomy site appears normal without any actual leakage or induration. However, inspection of the tube itself showed a 180-degree crack approximately 1 cm from the external bumper. Instillation of fluid showed significant leakage through the crack in the tube. EXTREMITIES: Show no edema. LABORATORY DATA: WBCs 10.9, hemoglobin 9.2, platelet count 684. Electrolytes within normal range. Creatinine 0.75. LFTs are normal. ASSESSMENT: 1. Crack in the gastrostomy tube, causing significant leakage. There is no evidence of leakage around the insertion site. 2. Possible aspiration pneumonia. RECOMMENDATION: We will obtain a 20-Armenian replacement G-tube from [employer] and we will replace at bedside. ADDENDUM: A 20-Armenian replacement G-tube has been replaced after extraction of the old tube. The patient can resume tube feeding. GI Service will sign off for now. Please call if needed. Job ID: [id number]
[2019-12-27] MEDS: Enoxaparin Sodium 40 MG/0.4 ML SYRINGE SC SCH (08:25)
[2019-12-27 08:31] LABS: #Eosinphils 0.1 thou/uL (0.0-0.7); #Lymphocytes 1.4 thou/uL (1.20-3.40); #Monocytes 0.9 thou/uL (0.11-0.59); #Neutrophils 8.7 thou/uL (1.40-6.50); %Basophils 0.3 % (0.0-1.0); %Eosinophils 1.3 % (0.0-10.0); %Lymphocytes 12.3 % (21.0-51.0); %Monocytes 8.2 % (0.0-10.0); Hemoglobin 8.8 g/dL (14.0-18.0); Mean Corpuscular HGB CONC 33.2 g/dL (32.0-36.0); Mean Corpuscular Hemoglobin 30.9 pg (27.0-31.0); Mean Corpuscular Volume 93.2 fL (78.0-98.0); Mean Platelet Volume 5.7 fL (7.4-10.4); Platelet Count 638 thou/uL (130-400); RBC Distribution Width 13.8 % (11.5-14.5); Red Blood Cell (RBC) Count 2.84 mill/uL (4.70-6.10); White Blood Cell (WBC) Count 11.1 thou/uL (4.8-10.8)
[2019-12-27 08:49] LABS: Anion Gap 12 mmol/L (10-20); BUN (Urea Nitrogen) 15 mg/dL (8.4-25.7); Calc. Creatinine Clearance 64 mL/min (70-130); Calcium 9.3 mg/dL (7.8-10.44); Carbon Dioxide 25 mmol/L (23-31); Chloride 104 mmol/L (98-107); Estimated GFR-MDRD Greater than 90; Glucose 88 mg/dL (83-110); Potassium 4.2 mmol/L (3.5-5.1); Sodium 137 mmol/L (136-145)
[2019-12-27 09:40] LABS: Band 1 % (5-11); Lymphocytes 13 % (21-51); Monocytes 4 % (0-10); Platelet Morphology Comment Appears Increased; Polychromasia SLIGHT = 2-3 cells (100X) (0-2/hpf)
[2019-12-27 09:42] LABS: Eosinophils 1 % (0-10); Neutrophil 81 % (42-75)
--- NOTE | 2019-12-27 11:20 | PRG ---
DATE OF SERVICE: 12/27/2019 There has really been no change in Mr. Flaherty as far as his mentation and somnolence. I really think we have done all we can in the hospital setting and [facility]. He is 84 years old with dementia and his overall prognosis remains poor. We will continue with p.o. Augmentin for his pneumonia as an outpatient. Job ID: [id number]
[2019-12-27 11:56] VITALS: BP 119/74; TEMP 98.7
--- NOTE | 2019-12-28 09:29 | DIS ---
DATE OF ADMISSION: 12/25/2019 DATE OF DISCHARGE: 12/27/2019 RESIDENT: Thuy Casiano MD ADMITTING ATTENDING: Dai Moreno MD DISCHARGE ATTENDING: Ha Aggarwal MD CONSULTS: Gastroenterology, Palliative Care, Speech. PROCEDURES PERFORMED: PEG tube replacement on 12/26/2019. DISCHARGE MEDICATIONS: 1. Amoxicillin 875 mg oral every 12 hours. 2. Multivitamin one cap per tube daily. 3. Flomax 0.4 mg per tube at bedtime. 4. Atorvastatin 10 mg per tube at bedtime. 5. Tylenol 650 mg per tube every 6 hours as needed. 6. DuoNeb 3 mL nebulizer every 4 hours as needed. 7. Zofran ODT 4 mg per tube every 6 hours as needed. 8. Pulmicort 0.5 mg inhalation every 12 hours as needed. 9. Caladryl lotion one application topically twice daily as needed. 10. Keppra 500 mg per medication tube twice daily. 11. Potassium chloride 20 mEq per tube daily. 12. Protonix 40 mg per tube daily. 13. Lopressor 25 mg per tube twice daily. 14. Finasteride 5 mg per tube daily. 15. Aspirin 81 mg per tube daily. 16. Eliquis 2.5 mg oral twice daily. DISCONTINUED MEDICATIONS: Nitroglycerin 0.4 mg sublingual every 5 minute minutes as needed. PRIMARY DIAGNOSES: 1. Sepsis 2/2 Aspiration pneumonia. 2. PEG tube dysfunction. 3. Thrombocytosis. SECONDARY DIAGNOSES: 1. Dementia. 2. Chronic obstructive pulmonary disease. 3. BPH. 4. Hyperlipidemia. 5. Gastroesophageal reflux disease. 6. Schizophrenia. HISTORY OF PRESENT ILLNESS/HOSPITAL COURSE: This is an 84-year-old male, who presented to the ER, residential for cough and PEG tube issues. In the ER, the patient was given Rocephin, azithromycin, metronidazole, and 1 L of normal saline. Initially presenting with tachycardic, tachypneic, and had an elevated white count. The PEG tube was noted to be draining around this site. His WBCs were slightly elevated at 10.9. His procalcitonin was negative at 0.08. Chest x-ray on presentation showed mild increased density in the left lung base when compared to prior exam. No focal consolidation. The patient was admitted to the medical floor and treated for an aspiration pneumonia. Gastroenterology, Dr. Mccormack, was consulted for the PEG tube dysfunction. The patient's PEG tube was replaced on 12/26/[address] Mccormack successfully. Speech Therapy was able to see the patient during his stay and stated that he had chronic dysphagia that was worsened from previous and was coughing on his secretions. They recommended strict n.p.o. status with PEG tube feeds only. They did state that if the family was desiring comfort care for the patient that he could feed puree and nectar thick fluids for pleasure feeds with aspiration risk. Palliative Care was consulted to discuss with the family goals of care. They wished to remain full code. DISPOSITION: Guarded. DISCHARGE INSTRUCTIONS: 1. Location: [facility]. 2. Activity: Ad dilia. 3. Diet: PEG tube feeds. 4. Followup: Follow up with PCP, Dr. Ospina, within 7 days. Job ID: [id number] MTDD
--- NOTE | 2019-12-28 09:57 | PQF ---
UMASALVADOR IRVIN [id number] CLINICAL DOCUMENTATION CLARIFICATION FORM: POST DISCHARGE Addendum to original discharge summary date: Sepsis 12/03 aspiration pna____ Late entry note date: 12/29/19 DATE:12/29/2019 ATTN: Thuy Casiano, Please exercise your independent, professional judgment in responding to the clarification form. Clinical indicators are provided on the bottom of this form for your review Please check appropriate box(es): [ X] Sepsis due to: (Pna, UTI, gangrenous gall bladder, etc.) aspiration pneumonia Due to: [ ] Device (please specify) [ ] Implant [ ] Graft [ ] Infusion [ ] SIRS due to non-infectious process (please specify etiology) [ ] with organ dysfunction [ ] without organ dysfunction [ ] Severe sepsis with acute organ dysfunction of: (Examples: respiratory failure, encephalopathy, acute kidney failure, other) [ ] Septic Shock [ ] Localized infection without sepsis [ ] Other diagnosis [ ] Unable to determine In addition, please specify: Present on Admission (POA): [ x ] Yes [ ] No [ ] Unable to determine For continuity of documentation, please document condition throughout progress notes and discharge summary. Thank You. CLINICAL INDICATORS - SIGNS / SYMPTOMS / LABS Sepsis alert @-Documented in ED on 12/25 by Alla Rogers MD SIRS scoring:Productive cough/ PNA, Yes, Patient did meet at least 1 criteria for STEP A., Respiratory rate> 20/min, Heart rate >90 , Yes patient did meet at least 2 criteria for STEP B., A sepsis Alert was activated due to to patient meeting the activation requirements in Step A and Step B-Documented in ED on by Alla Rogers MD [id number] in ED on 12/25 by Alla Rogers MD [id number] in ED on 12/25 by Alla Rogers MD Pneumonia-Documented in ED on 12/25 by Alla Rogers MD WBC-10.9-Documented in Family Medicine H&P on 12/25 by Funmi Potter MD Peg tube dysfunction -Documented in Family Medicine H&P on 12/25 by Funmi Potter MD Suspected aspiration pneumonia-Documented in Family Medicine H&P on 12/25 by Funmi Potter MD RISK FACTORS Pneumonia-Documented in ED on 12/25 by Alla Rogers MD TREATMENTS: Cover with empiric antibiotics-Documented in Family Medicine H&P on 12/25 by Funmi Potter MD Rocephin 2 gm -Documented in Medication snapshot Zithromax-Documented in Medication snapshot [employer] Building Official [employer] Win[employer] Viewer (This form is maintained as a part of the permanent medical record) 2014 [employer]. All Rights Reserved Jonathan [email or web address] [phone] MTDD
== END 2019-12-27 15:57 | DRG 871 ==
LOC: ERS 22:12 → T4-B 23:34
PROVIDERS: ADMIT Student in an Organized Health Care Education/Training Program; ATTEND Student in an Organized Health Care Education/Training Program
PROC: 0D20XUZ Change Feeding Device in Upper Intestinal Tract, External Approach (ICD-10-PCS; principal; 2019-12-26)
DX: A41.9 Sepsis, unspecified organism (principal); J69.0 Pneumonitis due to inhalation of food and vomit; K94.23 Gastrostomy malfunction; E46 Unspecified protein-calorie malnutrition; N40.0 Benign prostatic hyperplasia without lower urinary tract symptoms; J44.9 Chronic obstructive pulmonary disease, unspecified; E78.5 Hyperlipidemia, unspecified; K21.9 Gastro-esophageal reflux disease without esophagitis; F20.9 Schizophrenia, unspecified; Z87.440 Personal history of urinary (tract) infections; D64.9 Anemia, unspecified; F03.90 Unspecified dementia, unspecified severity, without behavioral disturbance, psychotic disturbance, mood disturbance, and anxiety; R13.10 Dysphagia, unspecified; D47.3 Essential (hemorrhagic) thrombocythemia; Y83.8 Other surgical procedures as the cause of abnormal reaction of the patient, or of later complication, without mention of misadventure at the time of the procedure; Z68.22 Body mass index [BMI] 22.0-22.9, adult
CPT/HCPCS: 36415; 51701; 71045; 74018; 80048; 80053; 81003; 83605; 83880; 84145; 85025; 85060; 85610; 85730; 87040; 87086; 93005; 96361; 96365; 96367; J0456; J0696; J1650; J2543; J3490

== ENCOUNTER 2020-08-29 13:44 | Emergency (ER) | payer MEDICARE, MEDICAID ==
--- NOTE | 2020-08-29 16:39 | RAD ---
XR Abdomen 1 View/KUB HISTORY: Abdominal pain COMPARISON: 12/25/2019 FINDINGS: An IVC filter is again seen. A nonspecific bowel gas pattern is present. There is fecal mat erial in the colon and rectum. There is dextroscoliosis of the lumbar spine. There is suggestion of a PEG tube.
--- NOTE | 2020-08-29 17:35 | RAD ---
KUB: 08/29/20 PROVIDED CLINICAL HISTORY: PEG tube replacement. FINDINGS: Comparison is made with the examination performed earlier same date. Contrast material instilled thro ugh the percutaneous gastrostomy catheter opacities the stomach. The abdominal bowel gas pattern is n onspecific. IVC filter is again seen. IMPRESSION: As above. POS: MINE
== END 2020-08-29 17:52 ==
LOC: ERS 13:44
DX: K94.23 Gastrostomy malfunction (principal); N40.0 Benign prostatic hyperplasia without lower urinary tract symptoms; K21.9 Gastro-esophageal reflux disease without esophagitis; E78.5 Hyperlipidemia, unspecified; J44.9 Chronic obstructive pulmonary disease, unspecified; F20.9 Schizophrenia, unspecified; Z79.82 Long term (current) use of aspirin; Z79.01 Long term (current) use of anticoagulants; Z79.899 Other long term (current) drug therapy
CPT/HCPCS: 43762; 74018